=== PATIENT | male | born 1990 | race American Indian/Alaskan Native ===

== ENCOUNTER 2018-06-05 08:53 | Emergency (ER) | payer MEDICAID, SELFPAY ==
--- NOTE | 2018-06-05 09:00 | W.ED.GENAD ---
Discharge Plan Disposition Patient Disposition: HOME Condition: Fair Discharge Details Chief Complaint: Orthopedic Clinical Impression: Contusion of toe Primary Care Provider: Roberto Figueroa ED Provider: Santa Burks Home Meds and New Rx's Prescriptions: Continued citalopram 20 MG tablet 30 mg PO DAILY RF: 0 fluticasone 60 GM ointment 1 g Topical PRN PRNRF: 0 loratadine-pseudoephedrine 1 EACH tablet extended release 24 hr 1 tab PO BID RF: 0 naproxen 500 MG tablet 500 mg PO PRN PRNRF: 0 Discharge Instructions Instructions: Foot Contusion (ED) Additional Instructions: Encourage rest, ice, elevation. Tylenol and/or Ibuprofen as needed for discomfort. If you develop new or worsening symptoms seek care urgently once again. Otherwise, please follow-up with primary care in 2 weeks if pain is not improving. Stand Alone Forms: Work Release Referrals: Roberto Figueroa [Primary Care Provider] - Discharge Data Discharge Date/Time-TO BE ENTERED AT DEPARTURE: 06/05/18 10:44 Medical Decision Making Patient is a 27 year old male presenting today with c/c of left great toe pain. Reports that he was rushing down a flight of stairs when barefoot 2 days ago. Tripped and reports that the great toe folded under his foot. Since then has had moderate pain with ambulation at the base of the toe. Denies other injury at the time of the incident. Ecchymosis to base of the affected digit. Denies numbness or tingling but reports it feel distant. Sensation intact on exam. No pain elsewhere in the foot. Will obtain imaging, he declines analgesics at this time. HAs been using marijuana for discomfort. XR reviewed by radiologist: FINDINGS: Bones/joints: No fracture. No dislocation. There is a bone island in the first proximal phalanx. Soft tissues: No radiopaque foreign body. IMPRESSION: No acute osseous abnormality. Discussed findings with the patient. Advised contusion. Encouraged rest, ice, elevation. Tylenol and/or ibuprofen as needed for discomfort. Advised to seek care urgently once again with any new or worsening symptoms./Advise follow-up with primary care in 2 weeks if pain is not improving. All his questions and concerns were addressed and he is in agreement this plan. HPI General Date/Time Provider Initiated Documentation: 06/05/18 08:59. Limitations to Documentation: no limitations. Information obtained by: patient and RN notes reviewed. History of Present Illness 27 year old M presents to the emergency department with the chief complaint of right great toe pain, described as moderate, with intensity rated at 7. Quality is described as aching, and is localized to the right and lower extremity. Patient reports no radiation. Patient started experiencing this day(s) (2) and it has been constant. Immobilization improves symptom(s), Movement worsens symptoms . Patient notes no other symptoms.; denies fever/chills, headaches, rash and weakness. Patient did receive the following treatments prior to arrival, other (marijuana) Related Data Home Medications Medication Instructions Recorded Confirmed citalopram 30 mg PO DAILY 10/12/17 10/12/17 fluticasone 1 g TOPICAL PRN PRN 10/12/17 10/12/17 loratadine-pseudoephedrine 1 tab PO BID 10/12/17 06/05/18 naproxen 500 mg PO PRN PRN 10/12/17 06/05/18 Allergies Allergy/AdvReac Type Severity Reaction Status Date / Time erythromycin base AdvReac Mild Skin Rash Unverified 06/05/18 09:07 Review of Systems Constitutional Reports as per HPI, Denies chills, Denies fever(s), Denies headache(s) and Denies weakness ENT Denies headache(s) Cardiovascular Reports as per HPI Respiratory Reports as per HPI and Denies cough Musculoskeletal Reports as per HPI and Denies tingling Integumentary/Breasts Reports as per HPI, Denies rash and Denies wounds Neurologic Denies headache(s), Denies tingling and Denies weakness [facility] Social History Smoking/Tobacco Use Status: Current every day Exam Const General: cooperative, healthy appearing, comfortable, no acute distress, well developed and well groomed Nutritional Appearance: average body habitus and well nourished Orientation: alert and awake Resp Effort & Inspection: normal respiratory effort, able to speak in complete sentences and no respiratory distress Cardio Rate: regular rate Rhythm: regular rhythm Skin General skin exam: no rashes or lesions noted Lesions: no lesions Rashes: no rashes Trauma: no lacerations or abrasions Neuro General: alert and awake Cognition: normal cognition Speech: speech normal Gait: antalgic Motor: muscle tone normal throughout Sensory Exam: no sensory deficits noted Extrem Left lower extremity: normal capillary refill, no joint enlargement, lower leg Details: normal to inspection; no tenderness, ankle Details: normal to inspection and normal ROM; no tenderness and no swelling and foot (ecchymosis circumfrencially about the base of the left great toe) Details: normal capillary refill, abnormal to inspection (ecchymosis) Details: no joint swelling and no deformities, tenderness Location: of the great toe; not of the dorsal foot, not of the plantar foot, not of any other digit, not of the lateral foot, not of the medial foot and not of the mid foot and ecchymosis; no unusual warmth, no edema, no lacerations and no crepitus Psych Appearance: grossly normal and well kempt Mental Status: mental status grossly normal Speech and Movement: speech and movement normal
[2018-06-05 09:01] VITALS: BP 150/87; PULSE 98; RESP 16; TEMP 37.2; O2SAT 96
--- NOTE | 2018-06-05 09:10 | DI.RAD_ITS ---
SYMPTOM/DIAGNOSIS: GREAT TOE INJURY LEFT FOOT: No fracture or dislocation is seen. IMPRESSION: Negative left foot.
--- NOTE | 2018-06-05 09:13 | ED.GENADUL_ITS ---
Discharge Plan Disposition Patient Disposition: HOME Condition: Fair Discharge Details Chief Complaint: Orthopedic Clinical Impression: Contusion of toe Primary Care Provider: Roberto Figueroa ED Provider: Santa Burks Home Meds and New Rx's Prescriptions: Continued citalopram 20 MG tablet 30 mg PO DAILY RF: 0 fluticasone 60 GM ointment 1 g Topical PRN PRNRF: 0 loratadine-pseudoephedrine 1 EACH tablet extended release 24 hr 1 tab PO BID RF: 0 naproxen 500 MG tablet 500 mg PO PRN PRNRF: 0 Discharge Instructions Instructions: Foot Contusion (ED) Additional Instructions: Encourage rest, ice, elevation. Tylenol and/or Ibuprofen as needed for di scomfort. If you develop new or worsening symptoms seek care urgently once again. Otherwise, please follow-up with primary care in 2 weeks if pain is not improving. Stand Alone Forms: Work Release Referrals: Roberto Figueroa [Primary Care Provider] - Discharge Data Discharge Date/Time-TO BE ENTERED AT DEPARTURE: 06/05/18 10:44 Medical Decision Making Patient is a 27 year old male presenting today with c/c of left great toe pain. Reports that he was rushing down a flight of stairs when barefoot 2 days ago. Tripped and reports that the great toe folded under his foot. Since then has had moderate pain with ambulation at the base of the toe. Denies other injury at the time of the incident. Ecchymosis to base of the affected digit. Denies numbness or tingling but reports it feel distant. Sensation intact on exam. No pain elsewhere in the foot. Will obtain imaging, he declines analgesics at this time. HAs been using marijuana for discomfort. XR reviewed by radiologist: FINDINGS: Bones/joints: No fracture. No dislocation. There is a bone island in the first proximal phalanx. Soft tissues: No radiopaque foreign body. IMPRESSION: No acute osseous abnormality. Discussed findings with the patient. Advised contusion. Encouraged rest, ice, elevation. Tylenol and/or ibuprofen as needed for discomfort. Advised to seek care urgently once again with any new or worsening symptoms./Advise follow-up with primary care in 2 weeks if pain is not improving. All his questions and concerns were addressed and he is in agreement this plan. HPI General Date/Time Provider Initiated Documentation: 06/05/18 08:59 . Limitations to Documentation: no limitations . Information obtained by: patient and RN notes reviewed . History of Present Illness 27 year old M presents to the emergency department with the chief complaint of right great toe pain, described as moderate, with intensity rated at 7. Quality is described as aching, and is localized to the right and lower extremity. Patient reports no radiation. Patient started experiencing this day(s) (2) and it has been constant. Immobilization improves symptom(s), Movement worsens symptoms . Patient notes no other symptoms.; denies fever/chills, headaches, rash and weakness. Patient did receive the following treatments prior to arrival, other (marijuana) Related Data Home Medications Medication Instructions Recorded Confirmed citalopram 30 mg PO DAILY 10/12/17 10/12/17 fluticasone 1 g TOPICAL PRN PRN 10/12/17 10/12/17 loratadine-pseudoephedrine 1 tab PO BID 10/12/17 06/05/18 naproxen 500 mg PO PRN PRN 10/12/17 06/05/18 Allergies Allergy/AdvReac Type Severity Reaction Status Date / Time erythromycin base AdvReac Mild Skin Rash Unverified 06/05/18 09:07 Review of Systems Constitutional Reports as per HPI, Denies chills, Denies fever(s), Denies headache(s) and Denies weakness ENT Denies headache(s) Cardiovascular Reports as per HPI Respiratory Reports as per HPI and Denies cough Musculoskeletal Reports as per HPI and Denies tingling Integumentary/Breasts Reports as per HPI, Denies rash and Denies wounds Neurologic Denies headache(s), Denies tingling and Denies weakness [facility], [facility] Social History Smoking/Tobacco Use Status: Current every day Exam Const General: cooperative, healthy appearing, comfortable, no acute distress, well developed and well groomed Nutritional Appearance: average body habitus and well nourished Orientation: alert and awake Resp Effort & Inspection: normal respiratory effort, able to speak in complete sentences and no respiratory distress Cardio Rate: regular rate Rhythm: regular rhythm Skin General skin exam: no rashes or lesions noted Lesions: no lesions Rashes: no rashes Trauma: no lacerations or abrasions Neuro General: alert and awake Cognition: normal cognition Speech: speech normal Gait: antalgic Motor: muscle tone normal throughout Sensory Exam: no sensory deficits noted Extrem Left lower extremity: normal capillary refill, no joint enlargement, lower leg Details: normal to inspection; no tenderness, ankle Details: normal to inspection and normal ROM; no tenderness and no swelling and foot (ecchymosis circumfrencially about the base of the left great toe) Details: normal capillary refill, abnormal to inspection (ecchymosis) Details: no joint swelling and no deformities, tenderness Location: of the great toe; not of the dorsal foot, not of the plantar foot, not of any other digit, not of the lateral foot, not of the medial foot and not of the mid foot and ecchymosis; no unusual warmth, no edema, no lacerations and no crepitus Psych Appearance: grossly normal and well kempt Mental Status: mental status grossly normal Speech and Movement: speech and movement normal
--- NOTE | 2018-06-05 10:24 | DI.VRAD_ITS ---
EXAM: XR Left Foot Complete, 3 or more Views EXAM DATE/TIME: 06/05/2018 9:45 AM CLINICAL HISTORY: 27 years old, male; Great toe injury TECHNIQUE: XR Left foot 3 or more views. COMPARISON: No relevant prior studies available. FINDINGS: Bones/joints: No fracture. No dislocation. There is a bone island in the first proximal phalanx. Soft tissues: No radiopaque foreign body. IMPRESSION: No acute osseous abnormality. Dictated and Authenticated by: Garrett Joseph MD. Ordering:SHAMEKA Pratt MD
== END 2018-06-05 10:44 | disposition home or self-care (01) ==
PROVIDERS: Emergency Provider Physician Assistant; PCP Internal Medicine
DX: S90.112A Contusion of left great toe without damage to nail, initial encounter (principal); W18.40XA Slipping, tripping and stumbling without falling, unspecified, initial encounter
CPT/HCPCS: 99283; 73630; 99282

== ENCOUNTER 2019-03-14 11:27 | Outpatient (REF) | payer MEDICAID, SELFPAY ==
[2019-03-14 20:40] LABS: HCT 46.4 % (40.0-50.0); HGB 15.7 g/dL (13.5-17.5); Mean Corp. HGB Concentration 33.8 g/dL (32.0-36.0); Mean Corpuscular Hemoglobin 28.5 pg (27.0-33.0); Mean Corpuscular Volume 84.2 fL (80-95); Platelet Count 327 x1000/uL (130-400); RBC 5.51 m/cumm (4.50-6.00); RBC Distribution Width 13.1 % (11.8-14.1); White Blood Cell Count 7.32 k/cumm (4.4-10.8)
[2019-03-14 20:58] LABS: Anion Gap 8.6 mmol/L (3-11); BUN 11 mg/dL (7-18); CO2 27.4 mmol/L (21.0-32.0); CREATININE 0.98 mg/dL (0.70-1.30); Calcium 9.2 mg/dL (8.5-10.1); Chloride 107 mmol/L (98-107); Glucose 94 mg/dL (70-100); Potassium 4.2 mmol/L (3.5-5.1); Sodium 143 mmol/L (136-145); TSH (W/Ref FT4) 0.68 uIU/mL (0.36-3.74)
[2019-03-14 21:10] LABS: Vitamin D 25 Total 28.2 ng/ml (30-100)
== END 2019-03-14 11:47 ==
LOC: NCHCN 11:27
PROVIDERS: PCP Internal Medicine; Visit Provider Nurse Practitioner Family
DX: F32.9 Major depressive disorder, single episode, unspecified (principal); F41.1 Generalized anxiety disorder; R03.0 Elevated blood-pressure reading, without diagnosis of hypertension; G47.33 Obstructive sleep apnea (adult) (pediatric); G47.9 Sleep disorder, unspecified
CPT/HCPCS: 80048; 82306; 85027; 84443

== ENCOUNTER 2019-06-06 22:47 | Outpatient (REF) | payer MEDICAID, SELFPAY ==
[2019-06-07 03:02] LABS: ALT 40 U/L (16-63); AST 17 U/L (15-37); Albumin 3.8 g/dL (3.4-5.0); Alkaline Phosphatase 116 U/L (46-116); Bilirubin, Direct 0.07 mg/dL (0.00-0.20); Bilirubin, Total 0.3 mg/dL (0.2-1.0)
== END 2019-06-06 23:07 ==
LOC: NCHCN 22:47
PROVIDERS: PCP Internal Medicine; Visit Provider Nurse Practitioner Family
DX: R10.32 Left lower quadrant pain (principal); R03.0 Elevated blood-pressure reading, without diagnosis of hypertension; E66.01 Morbid (severe) obesity due to excess calories
CPT/HCPCS: 80076

== ENCOUNTER 2019-10-19 11:20 | Outpatient (REF) | payer MEDICAID, SELFPAY ==
[2019-10-19 20:54] LABS: ALT 51 U/L (16-63); AST 18 U/L (15-37); Alkaline Phosphatase 106 U/L (46-116); Anion Gap 11.3 mmol/L (3-11); BUN 12 mg/dL (7-18); Bilirubin, Total 0.3 mg/dL (0.2-1.0); CO2 23.7 mmol/L (21.0-32.0); CREATININE 1.16 mg/dL (0.70-1.30); Calcium 8.9 mg/dL (8.5-10.1); Calculated LDL 136 mg/dL (<100); Chloride 111 mmol/L (98-107); Cholesterol 221 mg/dL (<200); Glucose 93 mg/dL (74-106); HDL Cholesterol 28 mg/dL (40-60); Potassium 3.8 mmol/L (3.5-5.1); Sodium 146 mmol/L (136-145); Triglyceride 286 mg/dL (<150)
== END 2019-10-19 11:40 ==
LOC: NCHCN 11:20
PROVIDERS: PCP Internal Medicine; Visit Provider Nurse Practitioner Family
DX: R63.5 Abnormal weight gain (principal); M72.2 Plantar fascial fibromatosis; Z13.220 Encounter for screening for lipoid disorders; Z79.899 Other long term (current) drug therapy
CPT/HCPCS: 80053; 80061

== ENCOUNTER 2020-01-23 08:50 | Outpatient (CLI) | payer MEDICAID, SELFPAY ==
[2020-01-24 12:31] LABS: COVID-19 RT-PCR Result NEGATIVE (Negative)
== END 2020-01-23 09:10 ==
PROVIDERS: PCP Internal Medicine; Visit Provider Nurse Practitioner
DX: Z11.59 Encounter for screening for other viral diseases (principal); Z01.818 Encounter for other preprocedural examination
CPT/HCPCS: U0003

== ENCOUNTER 2020-07-09 15:19 | Outpatient (REF) | payer MEDICAID, SELFPAY ==
[2020-07-09 15:37] LABS: Anion Gap 6.9 mmol/L (3-11); BUN 12 mg/dL (7-18); CO2 25.1 mmol/L (21.0-32.0); Calcium 8.8 mg/dL (8.5-10.1); Chloride 110 mmol/L (98-107); Glucose 85 mg/dL (74-106); Potassium 3.7 mmol/L (3.5-5.1); Sodium 142 mmol/L (136-145)
[2020-07-09 16:27] LABS: Vitamin D 25 Total 26.9 ng/ml (30-100)
== END 2020-07-09 15:20 | disposition home or self-care (01) ==
LOC: NCHCN 15:19
PROVIDERS: PCP Internal Medicine; Visit Provider Nurse Practitioner Family
DX: F32.9 Major depressive disorder, single episode, unspecified (principal); Z79.899 Other long term (current) drug therapy
CPT/HCPCS: 80048; 82306

== ENCOUNTER 2020-07-12 02:45 | Emergency (ER) | payer MEDICAID, SELFPAY ==
[2020-07-12 02:45] VITALS: BP 149/96; PULSE 140; RESP 18; TEMP 37.2; O2SAT 95
--- NOTE | 2020-07-12 02:52 | ED.GENADUL_ITS ---
Discharge Plan Disposition Patient Disposition: HOME Condition: Good Discharge Details Clinical Impression: Psychosis, transient, Marijuana intoxication Primary Care Provider: Roberto Figueroa ED Provider: Roberto Carlson Home Meds and New Rx's Prescriptions: Continued naproxen 500 MG tablet 500 mg PO PRN PRNRF: 0 fluoxetine 40 mg Capsule 40 mg PO DAILY RF: 0 bupropion HCl [Wellbutrin SR] 150 mg Tablet Sustained-Release 12 Hr 150 mg PO BID RF: 0 olanzapine [Zyprexa] 5 mg Tablet 5 mg PO DAILY PRN PRNRF: 0 topiramate 25 mg Tablet 25 mg PO BID RF: 0 hydroxyzine HCl 50 mg Tablet 50 mg PO BID PRN PRNRF: 0 cholecalciferol (vitamin D3) [Vitamin D3] 25 mcg (1,000 unit) Capsule 50 mcg PO DAILY RF: 0 Discharge Instructions Additional Instructions: Suspect this episode was related to marijuana use as it was transient in nature. Would recommend decrease in marijuana use. Follow-up with primary care next week. Return to ED for any concerns or problems especially recurrent episodes. Referrals: Roberto Figueroa [Primary Care Provider] - Medical Decision Making Suspect this is drug-induced psychosis which is now resolving. Was fairly tachycardic but did not want IV and was able to drink fluids without difficulty. Thanks he has had elevated heart rate and blood pressure previously at doctor's office. Continues to have no physical complaints. Urine drug screen positive for marijuana only. Denies any SI or HI. Denies any other drugs, over-the- counter medications. Does take his prescribed medication as directed. Eventually patient's heart rate slowly came down. It is sinus on the monitor. He has had no recurrent episodes of paranoia or agitation. He has normal mental status and neurologic exam. Feel he is safe for discharge home at this point. Should consider decrease use of marijuana. Lab Data Lab results reviewed: Yes I reviewed the patient's lab results. HPI General Mode of arrival: EMS . Date/Time Provider Initiated Documentation: 07/12/20 02:51 . Information obtained by: patient, EMS and RN notes reviewed . HPI Narrative: Patient presents to the ED by ambulance after EMS and police were called to residence for paranoid behavior and agitation. Patient had been smoking marijuana. He became acutely paranoid and agitated and felt he was being possessed by a demon and being controlled by a statue. He was held down by family members. Eventually calmed down once the statue that he was concerned about was thrown out onto the front lawn. For EMS he has been completely calm and cooperative. He reports to me that he has smoked marijuana for a while and did not think that he smoked any more than usual tonight, though EMS reports that family said he used twice as much as usual. He denies any other drug use. He denies any alcohol use. Currently has no physical complaints of. He does have recollection of what occurred. No longer feels possessed or paranoid, denies SI, denies HI. Related Data Home Medications Medication Instructions Recorded Confirmed naproxen 500 mg PO PRN PRN 10/12/17 07/12/20 bupropion HCl [Wellbutrin SR] 150 mg PO BID 07/12/20 07/12/20 cholecalciferol (vitamin D3) 50 mcg PO DAILY 07/12/20 07/12/20 [Vitamin D3] fluoxetine 40 mg PO DAILY 07/12/20 07/12/20 hydroxyzine HCl 50 mg PO BID PRN PRN 07/12/20 07/12/20 olanzapine [Zyprexa] 5 mg PO DAILY PRN PRN 07/12/20 07/12/20 topiramate 25 mg PO BID 07/12/20 07/12/20 Allergies Allergy/AdvReac Type Severity Reaction Status Date / Time erythromycin base AdvReac Mild Skin Rash Unverified 07/12/20 04:59 General MILLER: 4 Review of Systems Narrative: As documented in HPI otherwise negative as below. Const: no fever, chills, weakness Resp: no cough, SOB, pleuritic pain CV: no CP, diaphoresis, edema, syncope GI: no abdominal pain, nausea, vomiting, diarrhea Neuro: no headache, numbness, focal weakness, confusion PFSH Medical History Asthma Depression Surgical History No significant past surgical history Social History Smoking/Tobacco Use Status: Former Tobacco Use Smoking risk assessment performed?: Yes Alcohol Intake: never Drug use: Daily Substance use type: marijuana Do you feel safe at home: Yes Do you feel safe in your relationship?: Yes Exam Narrative Exam Narrative: Const: Obese male in NAD. HEENT: NC/AT. Normal facial exam. Eyes: Dilated pupils but reactive. EOMI. Neck: Supple. Trachea midline. Lungs: Normal respiratory effort. Lungs are clear. Cor: Tachy. RRR without murmur/gallop. Good radial pulses. Neuro: A+O x 3. Normal speech, mentation, gait. Cranial nerves II - XII grossly intact. No gross motor or sensory deficit. Ext: No C/C/E. Skin: Warm and dry without rash. Psych: Calm and cooperative here. No signs of paranoia or delusion. No SI or HI. Normal thought content.
[2020-07-12 03:24] LABS: *AMPHETAMINES SCREEN URINE Negative (Negative); *BARBITURATES SCREEN URINE Negative (Negative); *BENZODIAZEPINES SCREEN URINE Negative (Negative); Cannabinoids THC POSITIVE (Negative); Cocaine Screen,Urine Negative (Negative); METHADONE URINE SCREEN Negative (Negative); OPIATES URINE SCREEN Negative (Negative)
[2020-07-12 03:26] LABS: Tricyclic Antidepressants Negative (Negative)
[2020-07-12 04:25] VITALS: BP 129/72; PULSE 120; RESP 18; O2SAT 96
[2020-07-12 05:05] VITALS: BP 136/80; PULSE 116; RESP 18; O2SAT 96
[2020-07-12 05:50] VITALS: BP 150/85; PULSE 109; RESP 18; O2SAT 96
== END 2020-07-12 06:25 | disposition home or self-care (01) ==
LOC: ER 06:09
PROVIDERS: Emergency Provider Emergency Medicine; PCP Internal Medicine
DX: F23 Brief psychotic disorder (principal); F12.121 Cannabis abuse with intoxication delirium; F22 Delusional disorders
CPT/HCPCS: 80307; 99284; 99283

== ENCOUNTER 2021-01-18 14:26 | Emergency (ER) | payer MEDICAID, SELFPAY ==
[2021-01-18 14:27] VITALS: RESP 14
[2021-01-18 14:33] VITALS: BP 127/86; PULSE 111; TEMP 37.5; O2SAT 96
--- NOTE | 2021-01-18 14:38 | W.ED.GENAD ---
Discharge Plan Disposition Patient Disposition: HOME Condition: Improving Discharge Details Clinical Impression: Anxiety, Marijuana intoxication Primary Care Provider: Roberto Figueroa ED Provider: Chris Pemberton Home Meds and New Rx's Prescriptions: Continued naproxen 500 MG tablet 500 mg PO PRN PRNRF: 0 fluoxetine 40 mg Capsule 40 mg PO DAILY RF: 0 bupropion HCl [Wellbutrin SR] 150 mg Tablet Sustained-Release 12 Hr 150 mg PO BID RF: 0 olanzapine [Zyprexa] 5 mg Tablet 5 mg PO DAILY PRN PRNRF: 0 topiramate 25 mg Tablet 25 mg PO BID RF: 0 hydroxyzine HCl 50 mg Tablet 50 mg PO BID PRN PRNRF: 0 cholecalciferol (vitamin D3) [Vitamin D3] 25 mcg (1,000 unit) Capsule 50 mcg PO DAILY RF: 0 citalopram 20 mg tablet 20 mg PO DAILY RF: 0 paroxetine HCl 20 mg tablet 20 mg PO DAILY RF: 0 omeprazole 20 mg capsule,delayed release(DR/EC) 20 mg PO DAILY RF: 0 melatonin 5 mg capsule 5 mg PO HS RF: 0 Discharge Instructions Instructions: Anxiety (ED) Additional Instructions: Please stop your use of marijuana. Continue your prescribed medications. Home to rest today. Small, frequent sips of fluid so that you maintain good hydration today. Return to the emergency room for any acute concerns. Medical Decision Making This is a 30-year-old male who presents via EMS. He reports smoking some marijuana at home this morning, becoming anxious and having a panic attack which she describes as emotional disturbance. He denies having thoughts of harming himself or others. He states after transport via EMS he is now feeling calm, no longer complaining of emotional distress, states he feels improved and requests discharge to home. I did perform a medical screening examination on the patient which is unremarkable. His heart rate at triage was elevated above 100, was 90 in the room during my examination. His thoughts are congruent and I do feel stable for discharge home. I admonished him to stop smoking marijuana. HPI General Mode of arrival: EMS. Date/Time Provider Initiated Documentation: 01/18/21 14:29. Limitations to Documentation: no limitations. Information obtained by: patient and EMS. History of Present Illness 30 year old M presents to the emergency department with the chief complaint of Panic attack after smoking marijuana, now improved , described as moderate, Quality is described as dull, and is localized to the right and lower extremity. Patient reports no radiation. Patient started experiencing this minute(s) and it has been now resolved. No relieving factors improve symptom(s), Other factors that worsen symptoms (marijuana) . Patient notes denies syncope and weakness. Patient did receive the following treatments prior to arrival, none Related Data Home Medications Medication Instructions Recorded Confirmed naproxen 500 mg PO PRN PRN 10/12/17 01/18/21 bupropion HCl [Wellbutrin SR] 150 mg PO BID 07/12/20 01/18/21 cholecalciferol (vitamin D3) 50 mcg PO DAILY 07/12/20 01/18/21 [Vitamin D3] fluoxetine 40 mg PO DAILY 07/12/20 01/18/21 hydroxyzine HCl 50 mg PO BID PRN PRN 07/12/20 01/18/21 olanzapine [Zyprexa] 5 mg PO DAILY PRN PRN 07/12/20 01/18/21 topiramate 25 mg PO BID 07/12/20 01/18/21 citalopram 20 mg PO DAILY 01/18/21 01/18/21 melatonin 5 mg PO HS 01/18/21 01/18/21 omeprazole 20 mg PO DAILY 01/18/21 01/18/21 paroxetine HCl 20 mg PO DAILY 01/18/21 01/18/21 Allergies Allergy/AdvReac Type Severity Reaction Status Date / Time erythromycin base AdvReac Mild Skin Rash Unverified 01/18/21 14:30 General Stated Complaint: PsychEval MILLER: 2 Review of Systems Narrative: Denies thoughts of harming himself or others. Now feels improved. No anxieties. 6 systems reviewed and otherwise negative [facility] Medical History Asthma Depression Surgical History No significant past surgical history Social History Smoking/Tobacco Use Status: Former Tobacco Use Smoking risk assessment performed?: Yes Alcohol Intake: never Drug use: Daily Substance use type: marijuana Do you feel safe at home: Yes Do you feel safe in your relationship?: Yes Exam Narrative Exam Narrative: GEN: awake, alert, oriented 3. Pleasant, well groomed, interactive. HEAD: Normocephalic, atraumatic ENT: Mucous membranes moist, oropharynx unremarkable, External ear exam unremarkable EYES: PERRL, EOMI NECK: Full ROM, no JOCELINE, no menigismus CHEST/RESP: Nontender, clear to auscultation bilateral, no wheeze/rhonchi/rales CARDIOVASCULAR: RRR, no murmur, rub isaac. 2+ Rad pulse bilateral ABDOMEN: Soft, nontender, no mass. +Bowel sounds EXT: Full ROM, no edema, no rash Neuro: Grossly normal neurologic exam, conversant, interactive. Psych: Speech fluent, thoughts congruent, affect flat Course Vital Signs Vital signs: Vital Signs Respiratory Rate 14 01/18/21 14:27 Temperature 37.5 C 01/18/21 14:33 Temperature Source Oral 01/18/21 14:33 Pulse 111 H 01/18/21 14:33 Respiratory Rate 14 01/18/21 14:27 Respiratory Effort Non-Labored 01/18/21 14:35 Blood Pressure 127/86 01/18/21 14:33 Pulse Oximetry 96 01/18/21 14:33 Oxygen Delivery Method Room Air 01/18/21 14:33 Oxygen Flow Rate 0 01/18/21 14:33 Pain Level 0 01/18/21 14:27
== END 2021-01-18 15:09 | disposition home or self-care (01) ==
LOC: ER 17:22
PROVIDERS: Emergency Provider Emergency Medicine; PCP Internal Medicine
DX: F41.9 Anxiety disorder, unspecified (principal); F12.929 Cannabis use, unspecified with intoxication, unspecified
CPT/HCPCS: 99283; 99282

== ENCOUNTER 2021-07-22 10:10 | Outpatient (CLI) | payer MEDICAID, SELFPAY ==
--- NOTE | 2021-07-22 09:15 | DI.RAD_ITS ---
Exam(s) XR WRIST RT COMPLETE EXAM: XR WRIST RT COMPLETE CLINICAL HISTORY: pain. TECHNIQUE: 2D digital imaging was performed. Three views. COMPARISON: No exams were available for comparison FINDINGS: BONES: No acute fracture is present. No bony destructive lesion is seen. JOINTS: The carpal bones are normally aligned. SOFT TISSUE: Normal. IMPRESSION: Unremarkable radiographs of the right wrist. DATA REPOSITORY: RADIATION DOSE DELIVERED:
== END 2021-07-22 10:11 | disposition home or self-care (01) ==
LOC: DIORS 10:10
PROVIDERS: PCP Nurse Practitioner Family; Visit Provider Physician Assistant Surgical
DX: M25.531 Pain in right wrist; M67.431 Ganglion, right wrist
CPT/HCPCS: 73110

== ENCOUNTER 2021-07-30 02:31 | Outpatient (CLI) | payer MEDICAID, SELFPAY ==
[2021-07-30 12:02] LABS: Source Nasal/Nares
[2021-07-30 14:10] LABS: COVID-19 PCR Negative (Negative)
== END 2021-07-30 02:32 | disposition home or self-care (01) ==
LOC: LBO 02:31
PROVIDERS: PCP Nurse Practitioner Family; Visit Provider Student in an Organized Health Care Education/Training Program
DX: Z20.822 Contact with and (suspected) exposure to COVID-19 (principal); Z01.818 Encounter for other preprocedural examination
CPT/HCPCS: 87635

== ENCOUNTER 2021-07-31 06:58 | Day surgery (SDC) | payer MEDICAID, SELFPAY ==
--- NOTE | 2021-07-31 06:51 | W.ANESPRE ---
General Info Height: 5 ft 10 in Weight: 117.48 kg Body Mass Index (BMI): 37.1 Surgical Procedure: Operation Date: 07/31/21 07:40 Proposed Procedure Side Surgeon p Wrist Ganglion Cyst Excision Right Julian Loo MD Meds Allergies and Home Medications Allergies Allergy/AdvReac Type Severity Reaction Status Date / Time erythromycin base AdvReac Mild Skin Rash Unverified 07/29/21 13:48 Home Medication Medication Instructions Recorded naproxen 500 mg tablet 500 mg PO PRN PRN 10/12/17 bupropion HCl 150 mg tablet,12 hr 150 mg PO BID 07/12/20 sustained-release (Wellbutrin SR) cholecalciferol (vitamin D3) 25 50 mcg PO DAILY 07/12/20 mcg (1,000 unit) capsule (Vitamin D3) hydroxyzine HCl 50 mg tablet 50 mg PO BID PRN PRN 07/12/20 olanzapine 5 mg tablet (Zyprexa) 5 mg PO DAILY PRN PRN 07/12/20 citalopram 20 mg tablet 20 mg PO DAILY 01/18/21 omeprazole 20 mg capsule,delayed 20 mg PO DAILY 01/18/21 release fluoxetine 40 mg capsule 60 mg PO DAILY cap 06/20/21 topiramate 25 mg tablet 75 mg PO BID tab 06/20/21 Current Visit Medications: Current Medications Generic Name Dose Route Start Last Admin Trade Name Freq PRN Reason Stop Dose Admin Ringer's Solution 1,000 mls @ 80 mls/hr 07/31/21 06:00 IV 08/29/21 23:59 INFUSION NICOLÁS Cefazolin Sodium 3,000 mg/ 100 mls @ 200 mls/hr 07/31/21 06:00 Sodium Chloride IVPB 07/31/21 23:59 PREOP NICOLÁS IV Miscellaneous Supplies 1 each 07/31/21 06:00 Iv Access IV 08/29/21 23:59 DIRECTED NICOLÁS Sodium Chloride 0 ml 07/31/21 06:00 Normal Saline Flush 10 Ml Syr IV 08/29/21 23:59 PRN PRN Sodium Chloride 0 ml 07/31/21 06:00 Normal Saline 10 Ml Vial IJ 08/29/21 23:59 DIRECTED PRN Sterile Water 0 ml 07/31/21 06:00 Water,Injection,Sterile 10 Ml Vial IJ 08/29/21 23:59 DIRECTED PRN PFSH Active Problems Active Problems: Problem Status Onset Code Ganglion cyst of dorsum of right wrist M67.431 Morbid obesity E66.01 ADHD F90.9 PTSD (post-traumatic stress disorder) F43.10 GERD (gastroesophageal reflux disease) K21.9 FROILAN (obstructive sleep apnea) G47.33 Periodic limb movement disorder G47.61 Psychosis, transient F09 Marijuana intoxication F12.929 Anxiety F41.9 Depression F32.9 Asthma J45.909 Medical History Medical History Pes planus Plantar fasciitis of left foot Surgical History Surgical History No significant past surgical history Tobacco Smoking/Tobacco Use Status: Former Tobacco Use Alcohol Alcohol Intake: current Alcohol intake frequency: holidays/special occasions only Substance Use Substance use: Daily Substance use type: marijuana Vital Signs and Lab Results Lab Results Blood Type / Crossmatch: No Data to Display Complete Blood Count: No Data to Display Complete Metabolic Panel: No Data to Display Liver Function Panel: No Data to Display Coagulation Panel: No Data to Display Cardiac Panel: No Data to Display Arterial Blood Gas: No Data to Display Venous Blood Gas: No Data to Display Pancreas Panel: No Data to Display Thyroid Panel: No Data to Display Infectious Disease: Coronavirus (COVID-19)(PCR) Negative (Negative) 07/30/21 09:28 07/30/21 Coronavirus 2019 Source Nasal/Nares 07/30/21 09:28 07/30/21 Blood Cultures: No Data to Display Toxicology Panel: No Data to Display Anesthesia Assessment and Plan Anesthesia History Personal History: No History of Anesthesia Complications Family History: No Family History of Anesthesia Complications Implantable Cardiac Device Does patient have a Pacemaker or an ICD?: No
[2021-07-31 07:03] VITALS: BP 148/93; PULSE 78; RESP 16; TEMP 36.5; O2SAT 100
--- NOTE | 2021-07-31 07:04 | W.ANESPRE ---
General Info Date of Service Date Performed: 07/31/21 Height: 5 ft 10 in Weight: 117.48 kg Body Mass Index (BMI): 37.1 Surgical Procedure: Operation Date: 07/31/21 07:40 Proposed Procedure Side Surgeon p Wrist Ganglion Cyst Excision Right Julian Loo MD Meds Allergies and Home Medications Allergies Allergy/AdvReac Type Severity Reaction Status Date / Time erythromycin base AdvReac Mild Skin Rash Unverified 07/31/21 07:08 Home Medication Medication Instructions Recorded naproxen 500 mg tablet 500 mg PO PRN PRN 10/12/17 bupropion HCl 150 mg tablet,12 hr 150 mg PO BID 07/12/20 sustained-release (Wellbutrin SR) cholecalciferol (vitamin D3) 25 50 mcg PO DAILY 07/12/20 mcg (1,000 unit) capsule (Vitamin D3) hydroxyzine HCl 50 mg tablet 50 mg PO BID PRN PRN 07/12/20 olanzapine 5 mg tablet (Zyprexa) 5 mg PO DAILY PRN PRN 07/12/20 omeprazole 20 mg capsule,delayed 20 mg PO DAILY 01/18/21 release fluoxetine 40 mg capsule 60 mg PO DAILY cap 06/20/21 topiramate 25 mg tablet 75 mg PO BID tab 06/20/21 Current Visit Medications: Current Medications Generic Name Dose Route Start Last Admin Trade Name Freq PRN Reason Stop Dose Admin Ringer's Solution 1,000 mls @ 80 mls/hr 07/31/21 06:00 IV 08/29/21 23:59 INFUSION NICOLÁS Cefazolin Sodium 3,000 mg/ 100 mls @ 200 mls/hr 07/31/21 06:00 Sodium Chloride IVPB 07/31/21 23:59 PREOP NICOLÁS IV Miscellaneous Supplies 1 each 07/31/21 06:00 Iv Access IV 08/29/21 23:59 DIRECTED NICOLÁS Sodium Chloride 0 ml 07/31/21 06:00 Normal Saline Flush 10 Ml Syr IV 08/29/21 23:59 PRN PRN Sodium Chloride 0 ml 07/31/21 06:00 Normal Saline 10 Ml Vial IJ 08/29/21 23:59 DIRECTED PRN Sterile Water 0 ml 07/31/21 06:00 Water,Injection,Sterile 10 Ml Vial IJ 08/29/21 23:59 DIRECTED PRN PFSH Active Problems Active Problems: Problem Status Onset Code Ganglion cyst of dorsum of right wrist M67.431 Morbid obesity E66.01 ADHD F90.9 PTSD (post-traumatic stress disorder) F43.10 GERD (gastroesophageal reflux disease) K21.9 FROILAN (obstructive sleep apnea) G47.33 Periodic limb movement disorder G47.61 Psychosis, transient F09 Marijuana intoxication F12.929 Anxiety F41.9 Depression F32.9 Asthma J45.909 Medical History Medical History Pes planus Plantar fasciitis of left foot Surgical History Surgical History No significant past surgical history Tobacco Smoking/Tobacco Use Status: Former Tobacco Use Alcohol Alcohol Intake: current Alcohol intake frequency: holidays/special occasions only Substance Use Substance use: Daily Substance use type: marijuana Vital Signs and Lab Results Lab Results Blood Type / Crossmatch: No Data to Display Complete Blood Count: No Data to Display Complete Metabolic Panel: No Data to Display Liver Function Panel: No Data to Display Coagulation Panel: No Data to Display Cardiac Panel: No Data to Display Arterial Blood Gas: No Data to Display Venous Blood Gas: No Data to Display Pancreas Panel: No Data to Display Thyroid Panel: No Data to Display Infectious Disease: Coronavirus (COVID-19)(PCR) Negative (Negative) 07/30/21 09:28 07/30/21 Coronavirus 2019 Source Nasal/Nares 07/30/21 09:28 07/30/21 Blood Cultures: No Data to Display Toxicology Panel: No Data to Display Anesthesia Assessment and Plan Anesthesia History Personal History: No History of General Anesthesia Family History: No Family History of Anesthesia Complications Exercise Tolerance Exercise Tolerance: Metabolic Equivalents>4 Pertinent Negatives Pertinent Negatives: No Symptoms of GERD, No Major Cardiovascular Symptoms or Complaints, No Major Pulmonary Symptoms or Complaints (Marijuana every day) and No History of CVA/TIA Cardiac & Pulmonary Exam Cardiac Exam: Normal S1/S2 Heart Sounds Pulmonary Exam: Clear Bilateral Breath Sounds Implantable Cardiac Device Does patient have a Pacemaker or an ICD?: No Airway Exam Known Difficult Airway: No Mallampati Class: 1 Mouth Opening: Normal (> 3cm) Thyromental Distance: Greater than 3 cm Facial Hair: Full Saleem Neck Range of Motion: Full ROM Neck Circumference: Thick Teeth Condition: Normal Dentition ASA Classification ASA Score: ASA 3 Emergency Case?: No NPO Status NPO Status: NPO Clears >2 hours, Solids >8 hours Anesthesia Plan Resuscitation Status: Full Code Anesthesia Technique: General Anesthesia Airway Planned: Natural Airway Monitors Used: Standard Monitors
[2021-07-31] MEDS: Lactated Ringers 1,000 ML 80 ML IV (07:13)
[2021-07-31 07:17] VITALS: BMI 37.1
[2021-07-31] MEDS: ceFAZolin 3,000 MG in Normal Saline 100 ML 200 MG IVPB (07:27)
--- NOTE | 2021-07-31 07:30 | PDOC.DSDIS_ITS ---
Discharge Plan Disposition Patient Disposition: HOME Condition: Good Discharge Details Reason For Visit: (R) Wrist Cyst Attending Provider: Julian Loo Primary Care Provider: Aarti Skaggs Home Meds and New Rx's Prescriptions: New acetaminophen 500 mg tablet 1,000 mg PO TID Qty: 90 0RF ibuprofen 600 mg tablet 600 mg PO TID PRN (Reason: pain) Qty: 90 0RF hydrocodone-acetaminophen 5-325 mg tablet 1 tab PO Q6H PRN (Reason: pain) Qty: 6 0RF Continued fluoxetine 40 mg capsule 60 mg PO DAILY 0RF topiramate 25 mg tablet 75 mg PO BID 0RF bupropion HCl [Wellbutrin SR] 150 mg Tablet Sustained-Release 12 Hr 150 mg PO BID 0RF olanzapine [Zyprexa] 5 mg Tablet 5 mg PO DAILY PRN PRN0RF hydroxyzine HCl 50 mg Tablet 50 mg PO BID PRN PRN0RF Rx Instructions: 1/2 to 1 tab BID PRN cholecalciferol (vitamin D3) [Vitamin D3] 25 mcg (1,000 unit) Capsule 50 mcg PO DAILY 0RF omeprazole 20 mg capsule,delayed release(DR/EC) 20 mg PO DAILY 0RF Label Comments: TAKE 1 CAPSULE BY MOUTH DAILY Discontinued naproxen 500 MG tablet 500 mg PO PRN PRN0RF Discharge Instructions Additional Instructions: Cyst Excision Discharge Instructions Activity: You should keep the hand/wrist elevated as much as possible for the first few days. You may use the other fingers as tolerated but avoid trying to do too much too soon. You may perform light activities with the splint in place. Dressing/Cast: Your splint should stay in place at all times. Do NOT get it wet. You may loosen the SCOTTY wrap if you feel it is too tight and then rewrap more loosely. Medications: - You should take Tylenol and Ibuprofen for baseline pain control. - You have been prescribed a stronger pain medication, Hydrocodone, for breakthrough pain. - You may apply ice over the wrist, just double bag so it doesn't get wet. Follow-up: 10-14 days Referrals: Julian Loo MD [ [facility] STAFF PHYSICIAN] - Activity:: Elevate Remove Dressings/Wound Care:: Do Not Remove Shower/Bathe:: Cover Diet:: As Tolerated Discharge Orders Discharge Orders: Discharge Order (Routine); Ordered 07/31/21 Ordered By: Josh Otto DS: Diagnosis Discharge Diagnosis (1) Ganglion cyst of dorsum of right wrist: Status: Acute
[2021-07-31] MEDS: Sodium Bicarbonate 50 MEQ/50 ML VIAL (07:36)
[2021-07-31 08:00] VITALS: BP 118/74; PULSE 78; RESP 16; TEMP 36.3; O2SAT 97
--- NOTE | 2021-07-31 08:23 | W.ANESPOSTOP ---
Postoperative Evaluation Date, Time and Location Date Performed: 07/31/21 Time Performed: : Patient Location: Day Surgery Unit Vital Signs Most Recent Imported Vital Signs: Most Recent Vital Signs Temp Pulse Resp BP Pulse Ox 36.3 C L 78 16 118/74 97 07/31/21 08:00 07/31/21 08:00 07/31/21 08:00 07/31/21 08:00 07/31/21 08:00 Pain Score Most Recent Pain Score: Most Recent Pain Score Pain Level 0 07/31/21 08:00 Assessment Mental Status: Awake (Alert & Oriented to Patient Baseline) Airway and Respiratory Function: Patent airway with normal (patient baseline) respiratory exam Cardiovascular Function: Hemodynamically Stable Hydration Status: Adequately Hydrated Nausea & Vomiting: No Nausea or Vomiting Pain: Pt. Denies Any Pain Peripheral Nerve Block: Patient did not receive a nerve block
[2021-07-31 08:35] VITALS: BP 131/78; PULSE 72; RESP 16; TEMP 36.5; O2SAT 99
--- NOTE | 2021-07-31 19:36 | ROE_ITS ---
Date of service: 07/31/21 Time of Service: 07:45 Operative Note Operative Note DATE OF PROCEDURE: 07/31/21 PRE-OP DIAGNOSIS: Right Dorsal Wrist Ganglion Cyst POST-OP DIAGNOSIS: same PROCEDURE: Excision of dorsal wrist ganglion cyst - right wrist SURGEON: Julian Loo ANESTHESIA TYPE: General:No Airway Refer to Anesthesia Record ESTIMATED BLOOD LOSS: 0 PATHOLOGY: none sent COMPLICATIONS: None Patient was transported to: PACU Patient's condition: stable Indications: Oleg is a 30 year old male who I have seen for a dorsal wrist ganglion cyst. It has continued to be bothersome despite some conservative options. Its size and interference with activities continues to cause problems. Therefore, I offered excision of the wrist cyst. I discussed the risks to include bleeding, infection, pain, stiffness, damage to nerve and vessels, recurrence. Despite these risks, he elects to proceed. Findings: A typical dorsal wrist ganglion cyst was encountered and traced back to the dorsal wrist capsul where it was excised. Procedure Description: Oleg was greeted in the preoperative holding area. Identity was confirmed and the correct site was identified and marked. Consent was reviewed the patient and signed. History and physical was updated. The patient to take not to the operating room placed in supine position. All bony prominences were well- padded. A nonsterile tourniquet was placed high up onto the right arm. The arms and prepped with ChloraPrep and draped in a standard fashion. The surgical site was marked on the skin and injected with 2% lidocaine with epinephrine buffered with sodium bicarbonate. The skin was incised sharply. Deeper dissection was carried out with tenotomy scissors and the cyst was identified and protected with dissection carried around. Once was fully identified it was deflated and the cyst stalk was followed down to the dorsal carpus. The cyst structure was resected and its origin from the carpus was opened with tenotomy scissors and rongeur. The wound was then thoroughly irrigated. There is no major bleeding. The wound was dry. The deep layer was reapproximated with a 3-0 Vicryl. The skin was closed with a running 4-0 Monocryl followed by skin glue, gauze, Kerlix, and Earl wrap. At the end the case all counts were correct. The patient was awakened from anesthesia and taken to the PACU in stable condition. There were no noted complications.
== END 2021-07-31 08:58 | disposition home or self-care (01) ==
PROVIDERS: PCP Nurse Practitioner Family; Visit Provider Student in an Organized Health Care Education/Training Program
PROC: (CPT 25111; principal; 2021-07-31 07:30)
DX: M67.431 Ganglion, right wrist (principal); G47.33 Obstructive sleep apnea (adult) (pediatric); J45.909 Unspecified asthma, uncomplicated; F41.9 Anxiety disorder, unspecified; E66.01 Morbid (severe) obesity due to excess calories
CPT/HCPCS: 25111; J0690; J1885; J2001; J2250; J2405; J3010

== ENCOUNTER 2021-11-25 18:10 | Outpatient (REF) | payer MEDICAID, SELFPAY ==
[2021-11-26 15:28] LABS: Chlamydia Result Negative (Negative); GC Result Negative (Negative)
== END 2021-11-25 18:11 | disposition home or self-care (01) ==
LOC: NCHCN 18:10
PROVIDERS: PCP Nurse Practitioner Family; Visit Provider Nurse Practitioner Family
DX: G44.82 Headache associated with sexual activity (principal); R39.9 Unspecified symptoms and signs involving the genitourinary system
CPT/HCPCS: 87491; 87591

== ENCOUNTER 2022-01-13 16:51 | Emergency (ER) | payer MEDICAID, SELFPAY ==
[2022-01-13 16:31] VITALS: BP 156/105; PULSE 103; TEMP 36.9; O2SAT 98
[2022-01-13 17:31] LABS: Bilirubin Negative (Negative); Blood Negative (Negative); Clarity Sl Cloudy (Clear); Glucose Negative (Negative); Ketones Negative (Negative); Leukocyte Esterase Negative (Negative); Nitrite Negative (Negative); Specific Gravity 1.015 (1.005-1.025); pH 8.5 (5-8)
[2022-01-13 17:39] LABS: Bacteria Negative HPF (Negative); C & S Indicated? No; Casts Negative LPF (Negative); Crystals Many Amorphous HPF (Negative); Epithelial Cells Rare HPF (Negative); Mucus Moderate (Negative); RBC Negative HPF (0-2); WBC 0-2 HPF (0-5)
[2022-01-13 17:42] LABS: Abs Immature Grans 0.04 10^3/uL (0.0-0.06); Absolute Basophil Count 0.08 10^3/uL (0.0-0.2); Absolute Eosinophil Count 0.14 10^3/uL (0.0-0.7); Absolute Monocyte Count 0.94 10^3/uL (0.1-0.8); Basophils % 0.7; Eosinophils % 1.2; HCT 43.4 % (40.0-50.0); HGB 14.1 g/dL (13.5-17.5); Immature Grans % 0.4; Lymphocytes % 11.5; MCH 28.9 pg (27.0-33.0); MCHC 32.5 % (32.0-36.0); MCV 89 fL (80-95); MPV 9.6 fL (8.0-11.0); Monocytes % 8.3; Neutrophils % 77.9; Platelet Count 353 10^3/uL (130-400); RBC 4.88 10^6/uL (4.36-5.78); RDW 14.2 % (11.8-14.1); RDW-SD 46.4 fL; WBC 11.28 10^3/uL (4.4-10.8)
[2022-01-13 17:44] LABS: *AMPHETAMINES SCREEN URINE Negative (Negative); *BARBITURATES SCREEN URINE Negative (Negative); *BENZODIAZEPINES SCREEN URINE Negative (Negative); Cannabinoids THC Positive (Negative); Cocaine Screen,Urine Negative (Negative); METHADONE URINE SCREEN Negative (Negative); OPIATES URINE SCREEN Negative (Negative)
[2022-01-13 17:47] LABS: Tricyclic Antidepressants Negative (Negative)
[2022-01-13 17:47] LABS: Absolute Neutrophil Count 8.79 10^3/uL (1.2-6.7)
[2022-01-13 18:05] LABS: ALT 40 U/L (16-63); AST 20 U/L (15-37); Albumin 4.7 g/dL (3.4-5.0); Alkaline Phosphatase 109 U/L (46-116); Anion Gap 9.4 mmol/L (3-11); BUN 10 mg/dL (7-18); Bilirubin, Total 0.6 mg/dL (0.2-1.0); CO2 24.6 mmol/L (21.0-32.0); CREATININE 1.1 mg/dL (0.70-1.30); Chloride 108 mmol/L (98-107); Estimated GFR 92.61 (mL/min/1.73m2); Glucose 108 mg/dL (74-106); Potassium 3.6 mmol/L (3.5-5.1); Sodium 142 mmol/L (136-145); TSH (W/Ref FT4) 1.02 uIU/mL (0.36-3.74); Total Protein 7.3 g/dL (6.4-8.2)
[2022-01-13 18:09] LABS: Salicylate < 2.8 mg/dL (<2.8)
[2022-01-13 18:10] LABS: Acetaminophen < 2 ug/mL (10-30)
[2022-01-13 18:16] LABS: ETHANOL BLOOD < 3.0 mg/dL (<10)
[2022-01-13] MEDS: LORazepam 1 MG TAB PO (19:32)
[2022-01-13] MEDS: hydrOXYzine HCL 50 MG TAB PO (19:32)
[2022-01-13] MEDS: OLANZapine 5 MG TAB PO (21:19)
[2022-01-13] MEDS: buPROPion-CR 150 MG TABCR PO (21:19)
[2022-01-13] MEDS: Topiramate 50 MG TAB 75 MG PO (21:19)
--- NOTE | 2022-01-13 21:22 | ED.GENADUL_ITS ---
Discharge Plan Disposition Patient Disposition: HOME Condition: Stable Discharge Details Clinical Impression: Depression Primary Care Provider: Aarti Skaggs ED Provider: Nichol Castle Home Meds and New Rx's Prescriptions: Continued fluoxetine 40 mg capsule 60 mg PO DAILY topiramate 25 mg tablet 75 mg PO BID naproxen 500 mg tablet 500 mg PO DAILY Label Comments: TAKE 1 TABLET BY MOUTH TWICE DAILY bupropion HCl [Wellbutrin SR] 150 mg Tablet Sustained-Release 12 Hr 150 mg PO BID olanzapine [Zyprexa] 5 mg Tablet 5 mg PO DAILY PRN PRN hydroxyzine HCl 50 mg Tablet 50 mg PO BID PRN PRN Rx Instructions: 1/2 to 1 tab BID PRN cholecalciferol (vitamin D3) [Vitamin D3] 25 mcg (1,000 unit) Capsule 50 mcg PO DAILY omeprazole 20 mg capsule,delayed release(DR/EC) 20 mg PO DAILY Label Comments: TAKE 1 CAPSULE BY MOUTH DAILY acetaminophen 500 mg tablet 1,000 mg PO TID Qty: 90 0RF ibuprofen 600 mg tablet 600 mg PO TID PRN (Reason: pain) Qty: 90 0RF Discharge Instructions Instructions: Depression (ED) Additional Instructions: Follow-up with your scheduled appointment with [facility] services tomorrow at 10 AM. Continue your regular medications as directed. Follow-up with your primary care doctor in 1 week. Return to the emergency department with any worsening or new concerning symptoms . Discharge Data Discharge Date/Time-TO BE ENTERED AT DEPARTURE: 01/14/22 18:56 Discharge Physician: Nichol Castle Medical Decision Making <Gurvinder Martinez NP - Last Filed: 01/14/22 08:50> Patient presenting to the emergency department for chief complaint of irritabi lity, hostility, and hearing voices. Patient reports that he has not been taking his medication as prescribed and has been using it intermittently. Over the last 24 to 48 hours he has been smoking a new type of hazed marijuana which is causing a worsening of symptoms. Today at home where he lives with his sister there is an emotional outburst and threats made of harming himself. Mother was able to come up and calm patient down and brought him to the emergency department. She states that she is unaware that patient has been having worsening symptoms over the last week. Patient also endorses main contributing factor is the remembrance of his father who approximately 10 years ago. Physical exam is unremarkable for any acute findings and no obvious self-harm. We will perform labs to rule out any metabolic cause. Reviewed labs and patient does have a slight leukocytosis which I feel is more due to stress than acute infection, CMP is nondiagnostic, TSH is normal, urinaly sis is nondiagnostic, patient is negative on his UDS for everything except for THC which he already admitted to and no alcohol was seen. Acetaminophen and salicylates are also negative. Do feel that patient is medically clear for mental health evaluation. After mental health evaluation plan of care for patient to rest in the emergency department overnight with reassessment in the morning. Patient did admit to mental health screener that this evening he did have a gun that was unloaded but that he felt safe for having the gun. Given patient's volatility potentially secondary to marijuana usage and past history of mental health provider did inform me that she has a low threshold LILA patient but at this time he is agreeable to remaining in the emergency department overnight with reassessment to consider voluntary admission versus outpatient services tomorrow depending on the reassessment. After discussion of this plan with patient and mother who is at bedside patient does endorse some anxiety so we will give patient hydroxyzine and 1 mg p.o. Ativan and reassess. We will also plan on giving patient his normal nightly meds to see if this helps further stabilize his condition. 2119-patient continues to endorse anxiety and is requesting Ativan.-Patient needed p.o. medications versus IM and patient requesting IM medication which I feel is appropriate. We will continue to monitor patient and reassess <Nichol Castle DO - Last Filed: 01/16/22 14:27> Patient presenting to the emergency department for chief complaint of irritab ility, hostility, and hearing voices. Patient reports that he has not been taking his medication as prescribed and has been using it intermittently. Over the last 24 to 48 hours he has been smoking a new type of hazed marijuana which is causing a worsening of symptoms. Today at home where he lives with his sister there is an emotional outburst and threats made of harming himself. Mother was able to come up and calm patient down and brought him to the emergency department. She states that she is unaware that patient has been having worsening symptoms over the last week. Patient also endorses main contributing factor is the remembrance of his father who approximately 10 years ago. Physical exam is unremarkable for any acute findings and no obvious self-harm. We will perform labs to rule out any metabolic cause. Reviewed labs and patient does have a slight leukocytosis which I feel is more due to stress than acute infection, CMP is nondiagnostic, TSH is normal, urinal ysis is nondiagnostic, patient is negative on his UDS for everything except for THC which he already admitted to and no alcohol was seen. Acetaminophen and salicylates are also negative. Do feel that patient is medically clear for mental health evaluation. After mental health evaluation plan of care for patient to rest in the emergency department overnight with reassessment in the morning. Patient did admit to mental health screener that this evening he did have a gun that was unloaded but that he felt safe for having the gun. Given patient's volatility potentially secondary to marijuana usage and past history of mental health provider did inform me that she has a low threshold LILA patient but at this time he is agreeable to remaining in the emergency department overnight with reassessment to consider voluntary admission versus outpatient services tomorrow depending on the reassessment. After discussion of this plan with patient and mother who is at bedside patient does endorse some anxiety so we will give patient hydroxyzine and 1 mg p.o. Ativan and reassess. We will also plan on giving patient his normal nightly meds to see if this helps further stabilize his condition. 2119-patient continues to endorse anxiety and is requesting Ativan.-Patient needed p.o. medications versus IM and patient requesting IM medication which I feel is appropriate. We will continue to monitor patient and reassess 01/14/22 Dr. Castle 0800 -- Case endorsed to follow-up with mental health after reassessment this morning. 1045 -- patient evaluated by mental health. Plan will be for transfer to care bed. Plan will be for patient to remain in the ED at this time. 1744 -- No care bed available today. Patient reevaluated by mental health who has cleared patient for discharge charge to home with safety plan. Mom at bedside and is agreeable with plan. Patient has an in person follow-up appointment with [facility] tomorrow at 10 AM. Patient will follow-up with his primary care provider for reevaluation. Usual and customary return precautions given prior to discharge. Medical Records Medical records reviewed: Yes I reviewed the patient's medical records. Lab Data Lab results reviewed: Yes I reviewed the patient's lab results. HPI <Gurvinder Martinez NP - Last Filed: 01/14/22 08:50> General Mode of arrival: ambulatory . Date/Time Provider Initiated Documentation: 01/13/22 16:58 . Limitations to Documentation: no limitations . Information obtained by: patient, family and RN notes reviewed . History of Present Illness 31 year old M presents to the emergency department with the chief complaint of Auditory hallucinations and outburst, described as moderate, severe and similar to prior episodes, Quality is described as other (Denies pain), Patient started experiencing this week(s) (1) and it has been intermittent. Rest improves symptom(s), Other factors that worsen symptoms (Family stressors and remembrance of father's ) . Patient did receive the following treatments prior to arrival, none Related Data Home Medications Medication Instructions Recorded Confirmed bupropion HCl 150 mg tablet,12 hr 150 mg PO BID 07/12/20 01/13/22 sustained-release (Wellbutrin SR) cholecalciferol (vitamin D3) 25 50 mcg PO DAILY 07/12/20 01/13/22 mcg (1,000 unit) capsule (Vitamin D3) hydroxyzine HCl 50 mg tablet 50 mg PO BID PRN PRN 07/12/20 08/09/21 olanzapine 5 mg tablet (Zyprexa) 5 mg PO DAILY PRN PRN 07/12/20 01/13/22 omeprazole 20 mg capsule,delayed 20 mg PO DAILY 01/18/21 01/13/22 release fluoxetine 40 mg capsule 60 mg PO DAILY 06/20/21 01/13/22 topiramate 25 mg tablet 75 mg PO BID 06/20/21 01/13/22 acetaminophen 500 mg tablet 1,000 mg PO TID #90 tabs 07/31/21 08/09/21 ibuprofen 600 mg tablet 600 mg PO TID PRN pain #90 tabs 07/31/21 08/09/21 naproxen 500 mg tablet 500 mg PO DAILY 01/13/22 01/13/22 Previous Rx's Medication Instructions Recorded acetaminophen 500 mg tablet 1,000 mg PO TID #90 tabs 07/31/21 ibuprofen 600 mg tablet 600 mg PO TID PRN pain #90 tabs 07/31/21 Allergies Allergy/AdvReac Type Severity Reaction Status Date / Time erythromycin base AdvReac Mild Skin Rash Unverified 08/09/21 10:32 General Stated Complaint: PsychEval MILLER: 2 Review of Systems <Gurvinder Martinez NP - Last Filed: 01/14/22 08:50> Constitutional Constitutional: Denies body ache(s), Denies chills and Denies fever(s) Eyes Eyes: Denies change in vision ENT Ears, Nose, Mouth, and Throat: Denies sore throat and Denies throat swelling Cardiovascular Cardiovascular: Denies chest pain and Denies dyspnea Respiratory Respiratory: Denies cough and Denies dyspnea Gastrointestinal Gastrointestinal: Denies abdominal pain, Reports constipation, Denies diarrhea, Denies nausea and Denies vomiting Genitourinary Genitourinary: Denies dysuria Psychiatric Psychiatric: Reports as per HPI, Reports anxiety, Reports depression, Reports auditory hallucinations, Reports mood swings, Reports panic attacks, Denies visual hallucinations, Denies hallucinations, Denies homicidal ideation and Reports suicidal ideation Allergic/Immunologic Allergic/Immunologic: Denies throat swelling PFSH <Gurvinder Martinez NP - Last Filed: 01/14/22 08:50> All Active Problems (Updated 01/14/22 @ 18:07 by Nichol Castle DO) Depression (Chronic) Ganglion cyst of dorsum of right wrist (Acute) S/P Excision: 07/31/3021 Morbid obesity (Acute) ADHD (Acute) PTSD (post-traumatic stress disorder) (Acute) GERD (gastroesophageal reflux disease) (Chronic) FROILAN (obstructive sleep apnea) (Chronic) Periodic limb movement disorder (Acute) Psychosis, transient (Acute) Marijuana intoxication (Acute) Anxiety (Chronic) Depression (Chronic) Asthma (Chronic) Medical History Pes planus Plantar fasciitis of left foot Surgical History No significant past surgical history Social History Smoking/Tobacco Use Status: Former Tobacco Use Quit Date: 05/11/19 Smoking risk assessment performed?: Yes Alcohol Intake: current Alcohol Intake frequency: holidays/special occasions only Alcohol type: hard liquor Drug use: Daily Substance use type: marijuana Details: smoked marijuana yesterday 07.30.21 Additional Social history: Unable to assess privately Exam <Gurvinder Martinez NP - Last Filed: 01/14/22 08:50> Const General: cooperative Orientation: alert, awake and oriented x3 Limitations: mental status not altered HENNV Head: normal to inspection, normocephalic and atraumatic Ears: hearing grossly normal bilaterally Mouth: moist mucous membranes Eyes General: appearance normal, both eyes and all related structures Pupils: PERRL EOM: EOM intact bilaterally Neck Thyroid: thyroid normal Resp Effort & Inspection: normal respiratory effort, able to speak in complete sentences and no respiratory distress Auscultation: clear to auscultation bilaterally Cardio Rate: regular rate and not tachycardic Rhythm: regular rhythm Heart Sounds: S1 normal, S2 normal, no click, no gallops, no murmurs and no rubs GI Palpation: soft, not firm, no guarding, not rigid and nontender Auscultation: normal bowel sounds Neuro General: patient alert, patient awake, patient oriented x3, gait normal, moves all extremities and no focal motor deficits Cognition: normal cognition Speech: speech normal Psych Appearance: grossly normal Mental Status: mental status grossly normal Speech and Movement: speech and movement normal and speech clear Mood: anxious mood Affect: indifferent and blunted Attitude: cooperative Thought Process: normal Thought Content: normal and suicidality Course <Gurvinder Martinez NP - Last Filed: 01/14/22 08:50> Vital Signs Vital signs: Vital Signs Temperature 36.9 C 01/13/22 16:31 Pulse 103 H 01/13/22 16:31 Blood Pressure 156/105 H 01/13/22 16:31 Pulse Oximetry 98 01/13/22 16:31 Temperature 36.9 C 01/13/22 16:31 Temperature Source Temporal Artery Scan 01/13/22 16:31 Pulse 103 H 01/13/22 16:31 Respiratory Effort Non-Labored 01/13/22 17:21 Blood Pressure 156/105 H 01/13/22 16:31 Blood Pressure Position Sitting 01/13/22 16:31 Pulse Oximetry 98 01/13/22 16:31 Oxygen Delivery Method Room Air 01/13/22 16:31 Oxygen Flow Rate 0 01/13/22 16:31 Lab/Test Results Lab/Test Results: Laboratory Tests Range/Units 01/13/22 01/13/22 01/13/22 16:45 16:45 17:30 WBC (4.4-10.8) 10^3/uL RBC (4.36-5.78) 10^6/uL Hgb (13.5-17.5) g/dL Hct (40.0-50.0) % MCV (80-95) fL MCH (27.0-33.0) pg MCHC (32.0-36.0) % RDW (11.8-14.1) % Plt Count (130-400) 10^3/uL MPV (8.0-11.0) fL Immature Gran % Neutrophils % Lymphocytes % Monocytes % Eosinophils % Basophils % Nucleated RBC % (0.0-0.3) % Absolute Neutrophils (1.2-6.7) 10^3/uL Absolute Lymphocytes (1.2-3.4) 10^3/uL Absolute Monocytes (0.1-0.8) 10^3/uL Absolute Eosinophils (0.0-0.7) 10^3/uL Absolute Basophils (0.0-0.2) 10^3/uL Sodium (136-145) mmol/L 142 Potassium (3.5-5.1) mmol/L 3.6 Chloride (98-107) mmol/L 108 H Carbon Dioxide (21.0-32.0) mmol/L 24.6 Anion Gap (3-11) mmol/L 9.4 BUN (7-18) mg/dL 10 Creatinine (0.70-1.30) mg/dL 1.1 Est GFR (CKD-EPI 2020) (mL/min/1.73m2) 92.61 Glucose (74-106) mg/dL 108 H Calcium (8.5-10.1) mg/dL 9.0 Total Bilirubin (0.2-1.0) mg/dL 0.6 AST (15-37) U/L 20 ALT (16-63) U/L 40 Alkaline Phosphatase (46-116) U/L 109 Total Protein (6.4-8.2) g/dL 7.3 Albumin (3.4-5.0) g/dL 4.7 TSH (0.36-3.74) uIU/mL 1.02 Urine Color (Yellow) Yellow Urine Clarity (Clear) Sl Cloudy Urine pH (5-8) 8.5 H Ur Specific [place] (1.005-1.025) 1.015 Urine Protein (Negative) mg/dL Trace H Urine Ketones (Negative) mg/dL Negative Urine Blood (Negative) Negative Urine Nitrite (Negative) Negative Urine Bilirubin (Negative) Negative Urine Urobilinogen (Up TO 0.2) EU/dL 1.0 H Ur Leukocyte Esterase (Negative) Negative Urine RBC (0-2) HPF Negative Urine WBC (0-5) HPF 0-2 Ur Epithelial Cells (Negative) HPF Rare Urine Crystals (Negative) HPF Many Amorphous Urine Bacteria (Negative) HPF Negative Urine Casts (Negative) LPF Negative Urine Mucus (Negative) Moderate Ur Culture Indicated? No Urine Glucose (Negative) mg/dL Negative Salicylates (<2.8) mg/dL Urine Opiates Screen (Negative) Negative Urine Methadone Screen (Negative) Negative Acetaminophen (10-30) ug/mL Ur Barbiturates Screen (Negative) Negative Ur Tricyclics Screen (Negative) Negative Ur Amphetamines Screen (Negative) Negative U Benzodiazepines Scrn (Negative) Negative Urine Cocaine Screen (Negative) Negative Ur THC Screen (Negative) Positive A Ethyl Alcohol (<10) mg/dL < 3.0 Range/Units 01/13/22 01/13/22 17:30 17:30 WBC (4.4-10.8) 10^3/uL 11.28 H RBC (4.36-5.78) 10^6/uL 4.88 Hgb (13.5-17.5) g/dL 14.1 Hct (40.0-50.0) % 43.4 MCV (80-95) fL 89 MCH (27.0-33.0) pg 28.9 MCHC (32.0-36.0) % 32.5 RDW (11.8-14.1) % 14.2 H Plt Count (130-400) 10^3/uL 353 MPV (8.0-11.0) fL 9.6 Immature Gran % 0.4 Neutrophils % 77.9 Lymphocytes % 11.5 Monocytes % 8.3 Eosinophils % 1.2 Basophils % 0.7 Nucleated RBC % (0.0-0.3) % 0.0 Absolute Neutrophils (1.2-6.7) 10^3/uL 8.79 H Absolute Lymphocytes (1.2-3.4) 10^3/uL 1.30 Absolute Monocytes (0.1-0.8) 10^3/uL 0.94 H Absolute Eosinophils (0.0-0.7) 10^3/uL 0.14 Absolute Basophils (0.0-0.2) 10^3/uL 0.08 Sodium (136-145) mmol/L Potassium (3.5-5.1) mmol/L Chloride (98-107) mmol/L Carbon Dioxide (21.0-32.0) mmol/L Anion Gap (3-11) mmol/L BUN (7-18) mg/dL Creatinine (0.70-1.30) mg/dL Est GFR (CKD-EPI 2020) (mL/min/1.73m2) Glucose (74-106) mg/dL Calcium (8.5-10.1) mg/dL Total Bilirubin (0.2-1.0) mg/dL AST (15-37) U/L ALT (16-63) U/L Alkaline Phosphatase (46-116) U/L Total Protein (6.4-8.2) g/dL Albumin (3.4-5.0) g/dL TSH (0.36-3.74) uIU/mL Urine Color (Yellow) Urine Clarity (Clear) Urine pH (5-8) Ur Specific [place] (1.005-1.025) Urine Protein (Negative) mg/dL Urine Ketones (Negative) mg/dL Urine Blood (Negative) Urine Nitrite (Negative) Urine Bilirubin (Negative) Urine Urobilinogen (Up TO 0.2) EU/dL Ur Leukocyte Esterase (Negative) Urine RBC (0-2) HPF Urine WBC (0-5) HPF Ur Epithelial Cells (Negative) HPF Urine Crystals (Negative) HPF Urine Bacteria (Negative) HPF Urine Casts (Negative) LPF Urine Mucus (Negative) Ur Culture Indicated? Urine Glucose (Negative) mg/dL Salicylates (<2.8) mg/dL < 2.8 Urine Opiates Screen (Negative) Urine Methadone Screen (Negative) Acetaminophen (10-30) ug/mL < 2 Ur Barbiturates Screen (Negative) Ur Tricyclics Screen (Negative) Ur Amphetamines Screen (Negative) U Benzodiazepines Scrn (Negative) Urine Cocaine Screen (Negative) Ur THC Screen (Negative) Ethyl Alcohol (<10) mg/dL Sign Out <Gurvinder Martinez NP - Last Filed: 01/14/22 08:50> Sign Out Data: Sign Out Comment: Patient pending disposition after reassessment in the morning by mental health to establish appropriate plan depending on how patient responds to restarting his meds and sleep. If patient were to attempt to lose please contact mental health for strong consideration EE. Last updated by Gurvinder Martinez NP at 01/13/22 22:59 Sign Out Comment: Stable throughout the night. No interventions needed. Pending reassessment by mental health in the morning Last updated by Tyree Grove DO at 01/14/22 07:04 PAWSS <Gurvinder Martinez NP - Last Filed: 01/14/22 08:50> Have you Been Recently Intoxicated or Drunk Within the Last 30 days?: No Have you Ever Experienced Previous Episodes of Alcohol Withdrawal?: No Have you ever Experienced Withdrawal Seizures?: No Have you ever Experienced Delirium Tremens(DT)s?: No Have you ever undergone Alcohol Rehabilitation Treatment (i.e, inpt ot outpatient treatment programs)?: No Have you ever Experienced Blackouts?: No Have you ever Combined Alcohol with other Downers within the last 90 days?: No Have you ever Combined Alcohol with any other Substance of Abuse during the last 90 days?: No Positive Blood Alcohol level on Presentation? [PCS.BAL]: No Evidence of Increased Autonomic Activity (i.e. HR>120, tremor, sweating, agitation, nausea)?: No Result: 0 <Nichol Castle DO - Last Filed: 01/16/22 14:27> Result: 0
[2022-01-13] MEDS: LORazepam 20 MG/10 ML VIAL IM (21:38)
[2022-01-13 22:39] VITALS: PULSE 91; O2SAT 97
[2022-01-14 12:19] VITALS: BP 164/92; PULSE 106; RESP 18; TEMP 36.7; O2SAT 98
--- NOTE | 2022-01-14 12:33 | PDOC.MHPN2 ---
Date of service: 01/14/22 Time of Service: 10:10 Mental Health Emergency Note Release [facility] release signed:: No Reason for Visit Client presented at [facility] for SI. In the last 2 weeks has the pt presented for ES prior to today?: Unknown Non Suicidal Self Injury Current: No History: yes, headbanging when stressed Safety Risk/Harm to Self or Others Current Ideation to Harm Self or Others: No Risk: Does risk to harm exist?: No Asssessment/Mental Status Appearance: Disheveled Attitude: Guarded Behavior: Agitated Speech: Soft and Hesitant Affect: Flat and Cogruent with mood Mood: Anxious and Angry Thought process: Goal directed (Client states he wants to go home) Hallucinations: yes, Auditory (Client reports he hears voices and his intrustive thoughts to harm himself) Delusions: No evidence Attention: Unremarkable Perception: Not impaired Orientation: Fully orientated Memory: Intact Insight: Poor Judgement: Poor Neurovegetative Symptoms Sleep: Increase (Client's mother reports he slept from 10 pm to 10 am) Appetitie: No change Interests: No change Energy: No change Libido: Not applicable Impression This assembly instructions writer reassessed client via zoom at [facility] ED. Client appeared disheveled, agitated and guarded in his responses to this assembly instructions writer. Client denies actively endorsing HI/SI/NSSI. Client denies intent/plan. However, client responded to this assembly instructions writer not right now in regards to SI. Client's sleep has improved, client's mother reports client slept from 10 pm to 10 am. Client reports he experiences intrusive thoughts regarding harming himself a few times a day, but has not experienced these thoughts since being in the ED. Client reports last time he had these thoughts a day ago. Client reports that he has had these thoughts from a very young age (client could not identify what age that was) and he has learned to deal with them in one ear out the other. Client stated these intrusive thoughts are stress induced that he feeds off of everyone's emotions. Client reports this weekend the stress led him to take his gun and put it against his head, client states he felt relief feeling the cold from the gun against his head and relaxed him. Client is displaying poor judgment/insight. Referral for carebed will be submitted for stabilization for client med delegation and OP supports in place. Client will remain in ED until placement is secured in carebed. Client was informed if he were attempt to leave AMA a mental health warrant would most likely be written due to concern for his safety/ wellbeing. Client stated he understood and appeared tearful. Plan/Disposition Recommended Disposition: Crisis bed, ([facility]) facility contacted. Status of Crisis Bed acceptance: Pending review. Plan: Client is to remain in ED until placement for care bed is securred. If client were to attempt to leave AMA please notify ES. Person reported agreement to plan: Yes Facilities contacted if Applicable Other: Other (Care Bed [facility]) accepted Pending review Reports/communication Outcome discussed with: ED/Personnel (MD Nichol Castle)
--- NOTE | 2022-01-14 15:54 | NUR.NOTE ---
Nursing Note: patients medications are at the pharmacy.
[2022-01-14] MEDS: LORazepam 1 MG TAB PO (16:02)
[2022-01-14] MEDS: LORazepam 1 MG TAB 2 MG PO (18:36)
--- NOTE | 2022-01-14 18:51 | NUR.NOTE ---
Nursing Note: Safety plan given to mother.
--- NOTE | 2022-01-15 13:09 | PDOC.MHPN2 ---
Date of service: 01/14/22 Time of Service: 16:47 Mental Health Emergency Note Release [facility] release signed:: No Reason for Visit Client presented to ED for SI In the last 2 weeks has the pt presented for ES prior to today?: Unknown Safety Risk/Harm to Self or Others Current Ideation to Harm Self or Others: No Asssessment/Mental Status Appearance: Disheveled Attitude: Cooperative and Friendly Behavior: Unremarkable Speech: Normal Affect: Flat Mood: Anxious Thought process: Unremarkable Hallucinations: No evidence Delusions: No evidence Attention: Unremarkable Perception: Not impaired Orientation: Fully orientated Memory: Intact Insight: Good Judgement: Good Impression No care bed available today. Client will be discharged on safety plan. Client and client's mother Navya are in agreeable of the steps listed: 1.? Make follow-up appointment with PCP ([facility]) 2.? Client will reengage in therapy sessions through [facility] with Franc Chandra 3.? Client will make follow-up appointment with Med. Provider 4.? Client will attend in-person session with ES 01/15 at 10 am at [address] [place] [address] 5.? Complete check in calls with ES daily at 12:30 pm until 01/17/2022 6.? All access to means (guns) will be removed from the home List was emailed to client by ED staff. Plan/Disposition Recommended Disposition: Community resources and Other (Active Saftey plan in place). Plan: Discharge on Saftey Plan Reports/communication Outcome discussed with: ED/Personnel (MS Nichol Castle) and Other (Client's mother Navya)
== END 2022-01-14 18:56 | disposition home or self-care (01) ==
PROVIDERS: Nurse Practitioner Family; Emergency Provider Physician Assistant; PCP Nurse Practitioner Family
DX: F32.A Depression, unspecified (principal); D72.829 Elevated white blood cell count, unspecified; F41.9 Anxiety disorder, unspecified; Z87.891 Personal history of nicotine dependence
CPT/HCPCS: 36415; 80053; 80307; 96372; 99284; 80320; 80329; 81003; 81015; 84443; 85025; J3490

== ENCOUNTER 2022-01-23 21:24 | Outpatient (REF) | payer MEDICAID, SELFPAY | END 2022-01-23 21:25 | disposition home or self-care (01) | LOC: NCHCN 21:24 | PROVIDERS: PCP Nurse Practitioner Family; Visit Provider Nurse Practitioner Family | DX: Q89.9 Congenital malformation, unspecified (principal) | CPT/HCPCS: 87077; 87070; 87186; 87205 ==

== ENCOUNTER 2022-02-03 12:49 | Emergency (ER) | payer MEDICAID, SELFPAY ==
[2022-02-03] VITALS (39 sets, daily range): BP systolic 133–167; BP diastolic 78–107; PULSE 87–108; RESP 15–29; TEMP 36.7; O2SAT 96–100
--- NOTE | 2022-02-03 12:45 | RT.EKG_ITS ---
APPROVED REPORT Exam: Resting ECG Reason for Exam: OD Patient Location: E HR:89 bpm ECG Measurements Heart Rate 89 AXIS MS 134 P 42 QRSd 89 QRS 23 QT 351 T 32 QTc 428 Conclusion Sinus rhythm...normal P axis, V-rate 60- 99 non-diagnostic EKG I have reviewed and interpreted ECG and agree with software generated interpretation.
--- NOTE | 2022-02-03 12:52 | ED.GENADUL_ITS ---
Discharge Plan Disposition Patient Disposition: HOME Condition: Stable Discharge Details Clinical Impression: Accidental overdose Primary Care Provider: Unknown,Unknown ED Provider: Gurvinder Martinez Home Meds and New Rx's Prescriptions: No Action fluoxetine 40 mg capsule 60 mg PO DAILY topiramate 25 mg tablet 75 mg PO BID naproxen 500 mg tablet 500 mg PO DAILY Label Comments: TAKE 1 TABLET BY MOUTH TWICE DAILY bupropion HCl [Wellbutrin SR] 150 mg Tablet Sustained-Release 12 Hr 150 mg PO BID olanzapine [Zyprexa] 5 mg Tablet 10 mg PO BID hydroxyzine HCl 50 mg Tablet 50 mg PO BID PRN PRN Label Comments: pt unsure of medication Rx Instructions: 1/2 to 1 tab BID PRN cholecalciferol (vitamin D3) [Vitamin D3] 25 mcg (1,000 unit) Capsule 50 mcg PO DAILY omeprazole 20 mg capsule,delayed release(DR/EC) 20 mg PO DAILY Label Comments: TAKE 1 CAPSULE BY MOUTH DAILY acetaminophen 500 mg tablet 1,000 mg PO TID Qty: 90 0RF ibuprofen 600 mg tablet 600 mg PO TID PRN (Reason: pain) Qty: 90 0RF Discharge Instructions Additional Instructions: Please ensure that when you use [id number] medication that you do not exceed 4000 mg of acetaminophen in a 24-hour period for no more than 2400 mg of ibuprofen/Motrin in a 24 period. Also be mindful that both ibuprofen naproxen and aspirin are all considered NSAIDs and may further cause GI issues including GI bleeding if you take too much. Please stay well-hydrated and return to the emergency department for any new or significant worsening of your symptoms. Please follow-up with your primary care provider as needed for further reassessment of your chronic knee pain Referrals: Aarti Skaggs [NURSE PRACTITIONER] - (As needed for reassessment) Discharge Data Discharge Date/Time-TO BE ENTERED AT DEPARTURE: 02/03/22 19:58 Medical Decision Making <DIVINE Owens - Last Filed: 02/10/22 22:27> Patient is pleasant 31 year old male presenting today with c/c of NSAID and APAP OD. States that he took this within the past hour. Denies suicidal attempt. Repots that he took this in effort to help with discomfort just when he awoke from a nap and was feeling groggy. He states that he has chronic knee pain, took the AOAO and NSAID and attempt to help with discomfort but is concerned that he took more than he should have. Denies any suicidal intent, no thoughts of self harm. On exam, patient appears nontoxic, abdomen benign. Consulted with Poison Control. They recommended against any charcoal or decontamination at this time. Advised that we will need 4 hour APAP level. Advised we should obtain ECG. ECG obtained and reviewed by maninder with no acute abnormality noted. Labs reviewed, no signficant abnormality at this time. Slightly elevated APAP level, will need repeat at 4hrs. Mom pulled me aside. She reports that patient has hx of depression and anxiety. She is concerne dthat this is associated with attempt at self harm. She is requesting evaluation with . Patient continues to deny any thoughts of self harm but I agree with evaluation by . At the end of my shift, care transitioned to Denis Martinez NP with MH evaluation pending and repeat APAP levels 1700-assumed care from DIVINE Owens. Patient pending repeat acetaminophen level and mental health evaluation for concerning statements brought up by family. Patient remains in stable condition Received repeat acetaminophen level which is 56. Spoke with Anthony at [facility] whom stated that this appears to be an expected level and patient is medically clear and not candidate for any further treatment. We will contact mental health for screening due to family concern. Mental health screener evaluated patient and agrees that patient is safe for discharge disposition and signs no concern for suicidal behavior. Patient to be discharged and recommended follow-up with primary care provider for chronic knee pain and to continue seeking mental health services as needed. After discussion of diagnosis and plan of care patient and mother has no further needs, questions, or concerns and states clear understanding to return to the emergency department for any worsening symptoms. This documentation was generated using Shape Collageation system, please disregard any oddities of phrase or misspellings. <Gurvinder Martinez NP - Last Filed: 02/03/22 21:23> Patient is pleasant 31 year old male presenting today with c/c of NSAID and APAP OD. States that he took this within the past hour. Denies suicidal attempt. Repots that he took this in effort to help with discomfort just when he awoke from a nap and was feeling groggy 1700-assumed care from DIVINE Owens. Patient pending repeat acetaminophen level and mental health evaluation for concerning statements brought up by family. Patient remains in stable condition Received repeat acetaminophen level which is 56. Spoke with Anthony at [facility] whom stated that this appears to be an expected level and patient is medically clear and not candidate for any further treatment. We will contact mental health for screening due to family concern. Mental health screener evaluated patient and agrees that patient is safe for discharge disposition and signs no concern for suicidal behavior. Patient to be discharged and recommended follow-up with primary care provider for chronic knee pain and to continue seeking mental health services as needed. After discussion of diagnosis and plan of care patient and mother has no further needs, questions, or concerns and states clear understanding to return to the emergency department for any worsening symptoms. This documentation was generated using Shape Collageation system, please disregard any oddities of phrase or misspellings. Lab Data Lab results reviewed: Yes I reviewed the patient's lab results. HPI <DIVINE Owens - Last Filed: 02/10/22 22:27> General Date/Time Provider Initiated Documentation: 02/03/22 12:52 . Limitations to Documentation: no limitations . Information obtained by: patient, family, EMS and RN notes reviewed . History of Present Illness 31 year old M presents to the emergency department with the chief complaint of APAP and NSAID OD, Patient started experiencing this hour(s) (1) Patient notes no other symptoms. (denies SI, HI). Patient did receive the following treatments prior to arrival, none Related Data Home Medications Medication Instructions Recorded Confirmed bupropion HCl 150 mg tablet,12 hr 150 mg PO BID 07/12/20 02/03/22 sustained-release (Wellbutrin SR) cholecalciferol (vitamin D3) 25 50 mcg PO DAILY 07/12/20 02/03/22 mcg (1,000 unit) capsule (Vitamin D3) hydroxyzine HCl 50 mg tablet 50 mg PO BID PRN PRN 07/12/20 08/09/21 olanzapine 5 mg tablet (Zyprexa) 10 mg PO BID 07/12/20 02/03/22 omeprazole 20 mg capsule,delayed 20 mg PO DAILY 01/18/21 02/03/22 release fluoxetine 40 mg capsule 60 mg PO DAILY 06/20/21 02/03/22 topiramate 25 mg tablet 75 mg PO BID 06/20/21 02/03/22 acetaminophen 500 mg tablet 1,000 mg PO TID #90 tabs 07/31/21 02/03/22 ibuprofen 600 mg tablet 600 mg PO TID PRN pain #90 tabs 07/31/21 02/03/22 naproxen 500 mg tablet 500 mg PO DAILY 01/13/22 02/03/22 Previous Rx's Medication Instructions Recorded acetaminophen 500 mg tablet 1,000 mg PO TID #90 tabs 07/31/21 ibuprofen 600 mg tablet 600 mg PO TID PRN pain #90 tabs 07/31/21 Allergies Allergy/AdvReac Type Severity Reaction Status Date / Time erythromycin base AdvReac Mild Skin Rash Unverified 02/03/22 14:02 plastics AdvReac Mild Skin Rash Uncoded 02/03/22 14:03 General MILLER: 2 Review of Systems <DIVINE Owens - Last Filed: 02/10/22 22:27> Constitutional Constitutional: Reports as per HPI, Denies chills, Denies fatigue and Denies fever(s) Cardiovascular Cardiovascular: Reports as per HPI, Denies chest pain and Denies dyspnea Respiratory Respiratory: Reports as per HPI, Denies cough and Denies dyspnea Gastrointestinal Gastrointestinal: Reports as per HPI Musculoskeletal Musculoskeletal: Reports as per HPI and Denies back pain Integumentary/Breasts Skin/Breast: Reports as per HPI and Denies rash Neurologic Neurologic: Reports as per HPI Psychiatric Psychiatric: Denies homicidal ideation and Denies suicidal ideation Endocrine Endocrine: Denies fatigue PFSH <DIVINE Owens - Last Filed: 02/10/22 22:27> All Active Problems (Updated 02/03/22 @ 19:40 by Gurvinder Martinez NP) Depression (Chronic) Accidental overdose (Acute) Ganglion cyst of dorsum of right wrist (Acute) S/P Excision: 07/31/3021 Morbid obesity (Acute) ADHD (Acute) PTSD (post-traumatic stress disorder) (Acute) GERD (gastroesophageal reflux disease) (Chronic) FROILAN (obstructive sleep apnea) (Chronic) Periodic limb movement disorder (Acute) Psychosis, transient (Acute) Marijuana intoxication (Acute) Anxiety (Chronic) Depression (Chronic) Asthma (Chronic) Medical History Pes planus Plantar fasciitis of left foot Surgical History No significant past surgical history Social History Smoking/Tobacco Use Status: Former Tobacco Use Quit Date: 05/11/19 Smoking risk assessment performed?: Yes Alcohol Intake: current Alcohol Intake frequency: holidays/special occasions only Alcohol type: hard liquor Drug use: Occasionally Substance use type: marijuana Do you feel safe at home: Yes Additional Social history: Unable to assess privately Exam <DIVINE Owens - Last Filed: 02/10/22 22:27> Const General: cooperative, healthy appearing, comfortable, no acute distress and well developed Nutritional Appearance: average body habitus and well nourished Orientation: alert and awake HENMT Head: normal to inspection Mouth: moist mucous membranes Resp Effort & Inspection: normal respiratory effort, able to speak in complete sentences and no respiratory distress Auscultation: clear to auscultation bilaterally, no rales, no rhonchi and no wheezes Cardio Rate: regular rate Rhythm: regular rhythm Heart Sounds: S1 normal and S2 normal GI Inspection: normal to inspection Palpation: soft, no hepatosplenomegaly and nontender Back/Spine/Pelvis Back: no CVA tenderness Skin General skin exam: no rashes or lesions noted Trauma: no lacerations or abrasions Neuro General: patient alert and patient awake Cognition: normal cognition Speech: speech normal Gait: normal gait Psych Appearance: grossly normal and well kempt Mental Status: mental status grossly normal Speech and Movement: speech and movement normal Mood: congruent mood Affect: indifferent Attitude: cooperative Thought Process: normal Thought Content: normal Insight: fair Judgment: fair Sign Out <DIVINE Owens - Last Filed: 02/10/22 22:27> Sign Out Data: Sign Out Comment: Care transition to Gurvinder Martinez NP. Patient took a handful of acetaminophen and ibuprofen. Repeat 4-hour acetaminophen level is pending. Patient to be evaluated by mental health although he adamantly denies any suicidal intent with his actions today. [place] that this was an accident after waking from a nap. Per poison control, did not address it is unlikely to find toxicity but recommended 4-hour acetaminophen level. Last updated by Santa Burks PA at 02/03/22 17:01
[2022-02-03 13:39] LABS: Abs Immature Grans 0.06 10^3/uL (0.0-0.06); Absolute Basophil Count 0.11 10^3/uL (0.0-0.2); Absolute Eosinophil Count 0.18 10^3/uL (0.0-0.7); Absolute Lymphocyte Count 1.26 10^3/uL (1.2-3.4); Absolute Monocyte Count 0.85 10^3/uL (0.1-0.8); Absolute Neutrophil Count 7.57 10^3/uL (1.2-6.7); Basophils % 1.1; Eosinophils % 1.8; HCT 44.2 % (40.0-50.0); HGB 14.6 g/dL (13.5-17.5); Immature Grans % 0.6; Lymphocytes % 12.6; MCH 29.9 pg (27.0-33.0); MCV 91 fL (80-95); MPV 9.7 fL (8.0-11.0); Monocytes % 8.5; Neutrophils % 75.4; Platelet Count 290 10^3/uL (130-400); RBC 4.88 10^6/uL (4.36-5.78); RDW 13.7 % (11.8-14.1); RDW-SD 46.3 fL; WBC 10.03 10^3/uL (4.4-10.8)
[2022-02-03] MEDS: Normal Saline 1,000 ML 1000 ML IV (13:46)
[2022-02-03 13:55] LABS: ALT 32 U/L (16-63); AST 13 U/L (15-37); Albumin 4.2 g/dL (3.4-5.0); Alkaline Phosphatase 135 U/L (46-116); Anion Gap 7.2 mmol/L (3-11); BUN 10 mg/dL (7-18); Bilirubin, Total 0.4 mg/dL (0.2-1.0); CO2 26.8 mmol/L (21.0-32.0); CREATININE 1.2 mg/dL (0.70-1.30); Calcium 9.1 mg/dL (8.5-10.1); Chloride 110 mmol/L (98-107); Estimated GFR 83.43 (mL/min/1.73m2); Glucose 78 mg/dL (74-106); Magnesium 2.1 mg/dL (1.8-2.4); Potassium 3.9 mmol/L (3.5-5.1); Sodium 144 mmol/L (136-145); Total Protein 6.8 g/dL (6.4-8.2)
[2022-02-03 13:59] LABS: ETHANOL BLOOD < 3.0 mg/dL (<10)
[2022-02-03 14:12] LABS: Acetaminophen 16 ug/mL (10-30); Salicylate < 2.8 mg/dL (<2.8)
[2022-02-03 14:47] LABS: Bilirubin Negative (Negative); Blood Negative (Negative); Clarity Clear (Clear); Glucose Negative (Negative); Ketones Negative (Negative); Leukocyte Esterase Negative (Negative); Nitrite Negative (Negative); Specific Gravity 1.015 (1.005-1.025); Urobilinogen 0.2 EU/dL (Up TO 0.2)
[2022-02-03 15:31] LABS: *AMPHETAMINES SCREEN URINE Negative (Negative); *BARBITURATES SCREEN URINE Negative (Negative); *BENZODIAZEPINES SCREEN URINE Negative (Negative); Cannabinoids THC Positive (Negative); Cocaine Screen,Urine Negative (Negative); METHADONE URINE SCREEN Negative (Negative); OPIATES URINE SCREEN Negative (Negative)
[2022-02-03 15:33] LABS: Tricyclic Antidepressants Negative (Negative)
[2022-02-03 18:20] LABS: Acetaminophen 56 ug/mL (10-30)
== END 2022-02-03 19:58 | disposition home or self-care (01) ==
PROVIDERS: Physician Assistant; Emergency Provider Nurse Practitioner Family
DX: T39.391A Poisoning by other nonsteroidal anti-inflammatory drugs [NSAID], accidental (unintentional), initial encounter (principal); T54.0X1A Toxic effect of phenol and phenol homologues, accidental (unintentional), initial encounter; R89.2 Abnormal level of other drugs, medicaments and biological substances in specimens from other organs, systems and tissues; G89.29 Other chronic pain; Z87.891 Personal history of nicotine dependence
CPT/HCPCS: 36415; 80053; 80307; 93005; 96360; 99284; 80320; 80329; 81003; 83735; 85025; 93010

== ENCOUNTER 2022-02-11 15:06 | Outpatient (REF) | payer MEDICAID, SELFPAY ==
[2022-02-11 19:02] LABS: HCT 45.5 % (40.0-50.0); HGB 15.2 g/dL (13.5-17.5); MCH 29.8 pg (27.0-33.0); MCHC 33.4 % (32.0-36.0); MCV 89 fL (80-95); MPV 9.7 fL (8.0-11.0); Platelet Count 332 10^3/uL (130-400); RDW 13.9 % (11.8-14.1); RDW-SD 45.2 fL; WBC 10.87 10^3/uL (4.4-10.8)
[2022-02-13 06:08] LABS: Vitamin D 25 Total 37.3 ng/mL (30-100)
== END 2022-02-11 15:07 | disposition home or self-care (01) ==
LOC: NCHCN 15:06
PROVIDERS: Visit Provider Nurse Practitioner Family
DX: F32.9 Major depressive disorder, single episode, unspecified (principal); F41.1 Generalized anxiety disorder; I10 Essential (primary) hypertension; M25.561 Pain in right knee; M25.562 Pain in left knee
CPT/HCPCS: 82306; 85027

== ENCOUNTER 2022-03-05 21:27 | Outpatient (REF) | payer MEDICAID, SELFPAY ==
[2022-03-05 21:09] LABS: Anion Gap 10.5 mmol/L (3-11); BUN 12 mg/dL (7-18); CO2 20.5 mmol/L (21.0-32.0); CREATININE 1.2 mg/dL (0.70-1.30); Calcium 8.8 mg/dL (8.5-10.1); Chloride 110 mmol/L (98-107); Estimated GFR 83.43 (mL/min/1.73m2); Glucose 103 mg/dL (74-106); Potassium 3.7 mmol/L (3.5-5.1); Sodium 141 mmol/L (136-145)
== END 2022-03-05 21:28 | disposition home or self-care (01) ==
LOC: NCHCN 21:27
PROVIDERS: PCP Nurse Practitioner Family; Visit Provider Nurse Practitioner Family
DX: I10 Essential (primary) hypertension (principal)
CPT/HCPCS: 80048

== ENCOUNTER 2023-03-04 12:41 | Outpatient (REF) | payer MEDICAID, SELFPAY ==
[2023-03-04 16:01] LABS: HCT 44.6 % (40.0-50.0); HGB 14.8 g/dL (13.5-17.5); MCH 28.7 pg (27.0-33.0); MCHC 33.2 % (32.0-36.0); MCV 86 fL (80-95); MPV 9.6 fL (8.0-11.0); Platelet Count 337 10^3/uL (130-400); RBC 5.16 10^6/uL (4.36-5.78); RDW 12.8 % (11.8-14.1); RDW-SD 40.2 fL; WBC 8.74 10^3/uL (4.4-10.8)
[2023-03-04 16:51] LABS: ALT 50 U/L (16-63); AST 15 U/L (15-37); Albumin 4.2 g/dL (3.4-5.0); Alkaline Phosphatase 144 U/L (46-116); Bilirubin, Total 0.3 mg/dL (0.2-1.0); Calculated LDL 162 mg/dL (<100); Cholesterol 244 mg/dL (<200); HDL Cholesterol 40 mg/dL (40-60); Total Protein 6.3 g/dL (6.4-8.2); Triglyceride 212 mg/dL (<150)
[2023-03-04 17:04] LABS: Hemoglobin A1C 5.1 % (<5.7)
[2023-03-04 17:59] LABS: Bilirubin, Direct 0.1 mg/dL (0.0-0.2)
== END 2023-03-04 12:42 | disposition home or self-care (01) ==
LOC: NCHCN 12:41
PROVIDERS: PCP Nurse Practitioner Family; Visit Provider Nurse Practitioner Family
DX: I10 Essential (primary) hypertension (principal); K21.9 Gastro-esophageal reflux disease without esophagitis; E66.01 Morbid (severe) obesity due to excess calories
CPT/HCPCS: 80061; 80076; 85027; 83036

== ENCOUNTER 2023-06-10 13:38 | Outpatient (REF) | payer MEDICAID, SELFPAY ==
[2023-06-10 16:05] LABS: TSH (W/Ref FT4) 2.07 uIU/mL (0.36-3.74)
[2023-06-10 16:48] LABS: Vitamin D 25 Total 26.8 ng/mL (30-100)
== END 2023-06-10 13:39 | disposition home or self-care (01) ==
LOC: NCHCN 13:38
PROVIDERS: PCP Nurse Practitioner Family; Visit Provider Nurse Practitioner Family
DX: R63.5 Abnormal weight gain (principal); E55.9 Vitamin D deficiency, unspecified
CPT/HCPCS: 82306; 84443

== ENCOUNTER 2023-08-24 15:35 | Outpatient (REF) | payer MEDICAID, SELFPAY | END 2023-08-24 15:36 | disposition home or self-care (01) | LOC: NCHCN 15:35 | PROVIDERS: PCP Nurse Practitioner Family; Visit Provider Nurse Practitioner Family | DX: J02.9 Acute pharyngitis, unspecified (principal) | CPT/HCPCS: 87070 ==

== ENCOUNTER 2024-02-01 12:11 | Outpatient (REF) | payer MEDICAID, SELFPAY ==
[2024-02-01 16:35] LABS: ALT 65 U/L (16-63); AST 25 U/L (15-37); Albumin 3.9 g/dL (3.4-5.0); Alkaline Phosphatase 138 U/L (46-116); Anion Gap 11.7 mmol/L (3-11); BUN 15 mg/dL (7-18); Bilirubin, Total 0.38 mg/dL (0.2-1.0); CO2 23.3 mmol/L (21.0-32.0); CREATININE 1.2 mg/dL (0.70-1.30); Calcium 8.6 mg/dL (8.5-10.1); Calculated LDL 124 mg/dL (<100); Chloride 110 mmol/L (98-107); Cholesterol 199 mg/dL (<200); Glucose 78 mg/dL (74-106); HDL Cholesterol 34 mg/dL (40-60); Potassium 3.9 mmol/L (3.5-5.1); Sodium 145 mmol/L (136-145); Total Protein 6.6 g/dL (6.4-8.2); Triglyceride 209 mg/dL (<150)
== END 2024-02-01 12:12 | disposition home or self-care (01) ==
LOC: NCHCN 12:11
PROVIDERS: PCP Physician Assistant Medical; Visit Provider Physician Assistant Medical
DX: I10 Essential (primary) hypertension (principal); E66.01 Morbid (severe) obesity due to excess calories; E55.9 Vitamin D deficiency, unspecified
CPT/HCPCS: 80053; 80061; 82306

== ENCOUNTER 2025-02-27 13:36 | Outpatient (REF) | payer MEDICAID, SELFPAY ==
[2025-02-27 15:55] LABS: HCT 44.2 % (40.0-50.0); HGB 14.4 g/dL (13.5-17.5); MCH 28.8 pg (27.0-33.0); MCHC 32.6 % (32.0-36.0); MCV 88 fL (80-95); MPV 10.4 fL (8.0-11.0); Platelet Count 295 10^3/uL (130-400); RBC 5.00 10^6/uL (4.36-5.78); RDW 13.2 % (11.8-14.1); RDW-SD 42.3 fL; WBC 10.47 10^3/uL (4.4-10.8)
[2025-02-27 16:14] LABS: Hemoglobin A1C 5.2 % (<5.7)
[2025-02-27 16:43] LABS: ALT 92 U/L (16-63); AST 22 U/L (15-37); Albumin 4.1 g/dL (3.4-5.0); Alkaline Phosphatase 132 U/L (46-116); Anion Gap 11.8 mmol/L (3-11); BUN 16 mg/dL (7-18); Bilirubin, Total 0.3 mg/dL (0.2-1.0); CO2 23.2 mmol/L (21.0-32.0); Calcium 9.0 mg/dL (8.5-10.1); Calculated LDL 111 mg/dL (<100); Chloride 108 mmol/L (98-107); Cholesterol 183 mg/dL (<200); Estimated GFR 90.90 (mL/min/1.73m2); Glucose 104 mg/dL (74-106); HDL Cholesterol 32 mg/dL (>or=40); Potassium 4.1 mmol/L (3.5-5.1); Sodium 143 mmol/L (136-145); Total Protein 6.4 g/dL (6.4-8.2); Triglyceride 204 mg/dL (<150); Vitamin D 25 Total 36 ng/mL (30-100)
[2025-03-01 10:18] LABS: Hepatitis C Ab w Rflx HCV PCR Negative (Negative)
== END 2025-02-27 13:37 | disposition home or self-care (01) ==
LOC: NCHCN 13:36
PROVIDERS: PCP Physician Assistant Medical; Visit Provider Physician Assistant Medical
DX: E55.9 Vitamin D deficiency, unspecified (principal); R74.8 Abnormal levels of other serum enzymes; E66.9 Obesity, unspecified
CPT/HCPCS: 80053; 80061; 82306; 85027; 86803; 83036

== ENCOUNTER → 2025-03-14 00:47 | Outpatient (CLI) | payer MEDICAID, SELFPAY ==
--- NOTE | 2025-03-14 | DI.US_ITS ---
Exam(s) US ABDOMEN LIMITED EXAM: US ABDOMEN LIMITED CLINICAL HISTORY: ELEVATED LIVER ENZYMES R74.8 ABNL LEVELS OTHER SERUM ENZYMES TECHNIQUE: Ultrasound abdomen performed using standard protocol. COMPARISON: No exams were available for comparison FINDINGS: There is no ascites evident. LIVER: Liver is hyperechoic indicating fatty parenchymal change. There no discrete focal hepatic lesions evident. GALLBLADDER/BILIARY: There are no gallstones. No gallbladder wall edema nor pericholecystic fluid. The common hepatic duct isnot dilated, measuring 2.5mm at the level of mojgan hepatis. PANCREAS: There is no evidence of pancreatic mass nor dilatation of the pancreatic duct. RIGHT KIDNEY:No evidence of solid mass, calculus, nor hydronephrosis. No cortical cysts evident. IMPRESSION: 1. No evidence of cholelithiasis nor dilatation of the biliary tree. 2. Hepatic steatosis noted. There are no discrete focal hepatic lesions evident. 3. No other significant right upper quadrant ultrasound findings and there is no ascites DATA REPOSITORY:
== END ==
LOC: DI 00:47
PROVIDERS: PCP Physician Assistant Medical; Visit Provider Physician Assistant Medical
DX: R74.8 Abnormal levels of other serum enzymes (principal); K76.0 Fatty (change of) liver, not elsewhere classified
CPT/HCPCS: 76705

== ENCOUNTER 2025-04-19 12:57 | Emergency (ER) | payer MEDICAID, SELFPAY ==
[2025-04-19 13:04] VITALS: BP 139/92; PULSE 126; RESP 20; TEMP 37.8; O2SAT 95
--- NOTE | 2025-04-19 14:41 | W.ED.GENAD ---
Discharge Plan Disposition Patient Disposition: Home Condition: Good Discharge Details Clinical Impression: Auditory hallucination Primary Care Provider: El Cope ED Provider: Tyree Grove Home Meds and New Rx's Prescriptions: New olanzapine [Zyprexa] 5 mg tablet 5 mg PO DAILY Qty: 10 0RF No Action escitalopram oxalate [Lexapro] 20 mg tablet 20 mg PO DAILY fluoxetine 40 mg capsule 60 mg PO DAILY topiramate 25 mg tablet 75 mg PO BID naproxen 500 mg tablet 500 mg PO DAILY Patient Comments: TAKE 1 TABLET BY MOUTH TWICE DAILY lisinopril 5 mg tablet 5 mg PO DAILY Patient Comments: TAKE 1 TABLET BY MOUTH EVERY DAY metformin 500 mg tablet extended release 24 hr 500 mg PO DAILY Patient Comments: TAKE 1 TABLET BY MOUTH EVERY DAY bupropion HCl [Wellbutrin SR] 150 mg Tablet Sustained-Release 12 Hr 150 mg PO BID olanzapine [Zyprexa] 5 mg Tablet 10 mg PO BID hydroxyzine HCl 50 mg Tablet 50 mg PO BID PRN PRN Patient Comments: pt unsure of medication Rx Instructions: 1/2 to 1 tab BID PRN cholecalciferol (vitamin D3) [Vitamin D3] 25 mcg (1,000 unit) Capsule 50 mcg PO DAILY omeprazole 20 mg capsule,delayed release(DR/EC) 20 mg PO DAILY Patient Comments: TAKE 1 CAPSULE BY MOUTH DAILY acetaminophen 500 mg tablet 1,000 mg PO TID Qty: 90 0RF ibuprofen 600 mg tablet 600 mg PO TID PRN (Reason: pain) Qty: 90 0RF Discharge Instructions Additional Instructions: Please take the 5 mg Zyprexa daily until you are able to follow-up with your psychiatrist. The prescription has been sent to your pharmacy. Please abide by the safety plan that you have committed to. If you notice any worsening of your symptoms, or any new symptoms such as vomiting, diarrhea, fever, chills, shortness of breath, chest pain, numbness, weakness, or fainting , please return immediately to the emergency department for reevaluation. Please follow up with your primary care provider as soon as possible for reassessment and reevaluation. As always, it was a pleasure participating in your medical care today. Stand Alone Forms: Portal Information Referrals: Minda Gibson MD [ [facility] STAFF PHYSICIAN, Medicine] El Cope PA [Primary Care Provider, Medicine] HPI General Date/Time Provider Initiated Documentation: 04/19/25 13:09. HPI Narrative: 34-year-old male with a past medical history of ADHD, PTSD, GERD, obstructive sleep apnea, asthma, depression, previous history of psychosis, schizophrenia with a history of auditory visual hallucinations presents today for mental health evaluation. Patient and family who is at bedside state that for the last few weeks the patient has been having auditory hallucinations with some visual hallucinations as well. Patient has been off of his olanzapine for the last 2 years after he was titrated off of this by psychiatrist. Patient had a crisis evaluation today, and had this felt to be having increased auditory visual hallucinations, and there was concern because of this. He denies any homicidal or suicidal ideations though. Safety plan was created with his mental health team, and he was subsequently scheduled for further outpatient evaluation including a counselor tomorrow and psychiatry next week. However family after discussion with the therapist was under the impression that there was a recommendation to come to the ER to be started on psychiatric medications per the recommendations of Dr. Gibson. Patient and family have no other complaints at this time. Related Data Home Medications ?Medication ?Instructions ?Recorded ?Confirmed bupropion HCl 150 mg tablet,12 hr 150 mg PO BID 07/12/20 04/19/25 sustained-release (Wellbutrin SR) cholecalciferol (vitamin D3) 25 50 mcg PO DAILY 07/12/20 04/19/25 mcg (1,000 unit) capsule (Vitamin D3) hydroxyzine HCl 50 mg tablet 50 mg PO BID PRN PRN 07/12/20 04/19/25 olanzapine 5 mg tablet (Zyprexa) 10 mg PO BID 07/12/20 04/19/25 Held on 04/19/25. Instructions: Changed by Provider omeprazole 20 mg capsule,delayed 20 mg PO DAILY 01/18/21 04/19/25 release fluoxetine 40 mg capsule 60 mg PO DAILY 06/20/21 04/19/25 topiramate 25 mg tablet 75 mg PO BID 06/20/21 04/19/25 acetaminophen 500 mg tablet 1,000 mg (2 x 500 mg) PO TID #90 07/31/21 04/19/25 tabs ibuprofen 600 mg tablet 600 mg PO TID PRN pain #90 tabs 07/31/21 04/19/25 naproxen 500 mg tablet 500 mg PO DAILY 01/13/22 04/19/25 escitalopram oxalate 20 mg tablet 20 mg PO DAILY 07/28/23 04/19/25 (Lexapro) lisinopril 5 mg tablet 5 mg PO DAILY 04/19/25 04/19/25 metformin 500 mg tablet,extended 500 mg PO DAILY 04/19/25 04/19/25 release 24 hr olanzapine 5 mg tablet (Zyprexa) 5 mg PO DAILY #10 tabs 04/19/25 Previous Rx's ?Medication ?Instructions ?Recorded acetaminophen 500 mg tablet 1,000 mg (2 x 500 mg) PO TID #90 07/31/21 tabs ibuprofen 600 mg tablet 600 mg PO TID PRN pain #90 tabs 07/31/21 olanzapine 5 mg tablet (Zyprexa) 5 mg PO DAILY #10 tabs 04/19/25 Allergies Allergy/AdvReac Type Severity Reaction Status Date / Time erythromycin base AdvReac Mild Skin Rash Unverified 04/19/25 13:09 plastics AdvReac Mild Skin Rash Uncoded 04/19/25 13:09 General Stated Complaint: PsychEval MILLER: 2 Exam Narrative Exam Narrative: 1.Const: Well-nourished, Well-developed, appearing stated age 2.Eyes: PERRL, no conjunctival injection, and symmetrical lids. 3.ENT: Atraumatic external nose and ears. Moist MM. Neck: Symmetric, trachea midline, No thyromegaly. 4.CVS: +S1/S2, Peripheral pulses 2+ and equal in all extremities. Brisk capillary refill in all extremities. 5.RESP: Unlabored respiratory effort. Clear to auscultation bilaterally. No wheezes rales or rhonchi 6.GI: Soft, Nontender/Nondistended, No hepatosplenomegaly. No guarding or rebound. 7.MSK: Normocephalic/Atraumatic, Extremities w/o deformity or ttp No cyanosis or clubbing, Normal movement of all extremities 8.Skin: Warm, Dry. No rashes or lesions. 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 Sensation grossly intact, no focal neurologic deficits. 10.Psych: (AAO) x3. Somewhat of a flat affect. Course Vital Signs Vital signs: Vital Signs Temperature 37.8 C H 04/19/25 13:04 Pulse 126 H 04/19/25 13:04 Respiratory Rate 20 04/19/25 13:04 Blood Pressure 139/92 H 04/19/25 13:04 Pulse Oximetry 95 04/19/25 13:04 Temperature 37.8 C H 04/19/25 13:04 Pulse 126 H 04/19/25 13:04 Respiratory Rate 20 04/19/25 13:04 Blood Pressure 139/92 H 04/19/25 13:04 Blood Pressure Position Sitting 04/19/25 13:04 Pulse Oximetry 95 04/19/25 13:04 Oxygen Delivery Method Room Air 04/19/25 13:04 Oxygen Flow Rate 0 04/19/25 13:04 Medical Decision Making 34-year-old male with a past medical history of ADHD, PTSD, GERD, obstructive sleep apnea, asthma, depression, previous history of psychosis, schizophrenia with a history of auditory visual hallucinations presents today for mental health evaluation. Patient and family who is at bedside state that for the last few weeks the patient has been having auditory hallucinations with some visual hallucinations as well. Patient has been off of his olanzapine for the last 2 years after he was titrated off of this by psychiatrist. Patient had a crisis evaluation today, and had this felt to be having increased auditory visual hallucinations, and there was concern because of this. He denies any homicidal or suicidal ideations though. Safety plan was created with his mental health team, and he was subsequently scheduled for further outpatient evaluation including a counselor tomorrow and psychiatry next week. However family after discussion with the therapist was under the impression that there was a recommendation to come to the ER to be started on psychiatric medications per the recommendations of Dr. Gibson. Patient and family have no other complaints at this time. Exam demonstrates stable male, flat affect. No reported homicidal or suicidal ideations. Plan is certainly atypical from the normal status quo from our mental health colleagues. I did reach out to [facility] crisis team, and they were aware of the safety plan but not aware of the recommendations for the ED visitation. I did contact Dr. Gibson of psychiatry, and she was also not aware of this plan. However as the patient is with this currently and the patient is also experiencing auditory and visual hallucinations, we discussed a plan together, and at this time we do feel that it is reasonable to start the patient on 5 mg of Zyprexa daily. Will give a dose here, and a prescription for home. Patient has a scheduled follow-up with psychiatry next week. And will do that. Dr. Gibson is in agreement with plan. Discussed this with family and they agree with the plan. I have extensively reviewed the treatment plan and discharge instructions with the patient and their family. I have addressed all patient concerns at this time. The patient and family was made aware of what symptoms to monitor for that would warrant a return to the emergency department. Discussed the plan with the patient and family, they demonstrate verbal understanding and agreement with our assessment and plan at this time. The documentation in this chart was dictated using Melty dictation software. Please excuse any dictation errors. PFSH All Active Problems (Updated 04/19/25 @ 14:56 by Tyree Grove DO) Auditory hallucination (Acute) Ganglion cyst of dorsum of right wrist (Acute) S/P Excision: 07/31/3021 Morbid obesity (Acute) ADHD (Acute) PTSD (post-traumatic stress disorder) (Acute) GERD (gastroesophageal reflux disease) (Chronic) FROILAN (obstructive sleep apnea) (Chronic) Periodic limb movement disorder (Acute) Psychosis, transient (Acute) Marijuana intoxication (Acute) Anxiety (Chronic) Depression (Chronic) Asthma (Chronic) Medical History Pes planus Plantar fasciitis of left foot Surgical History No significant past surgical history Social History Smoking/Tobacco Use Status: Former Tobacco Use Quit Date: 05/11/19 Smoking risk assessment performed?: Yes Alcohol Intake: current Alcohol Intake frequency: holidays/special occasions only Alcohol type: hard liquor Drug use: Occasionally Substance use type: marijuana Do you feel safe at home: Yes Additional Social history: Unable to assess privately
[2025-04-19] MEDS: OLANZapine 5 MG TAB PO (15:04)
== END 2025-04-19 15:09 | disposition home or self-care (01) ==
PROVIDERS: Emergency Provider Student in an Organized Health Care Education/Training Program; PCP Physician Assistant Medical
DX: R44.0 Auditory hallucinations (principal); F32.A Depression, unspecified; F20.9 Schizophrenia, unspecified; F43.10 Post-traumatic stress disorder, unspecified
CPT/HCPCS: 99284; 99283

== ENCOUNTER 2025-04-20 11:26 | Emergency (ER) | payer MEDICAID, SELFPAY ==
[2025-04-20] VITALS (42 sets, daily range): BP systolic 128–175; BP diastolic 75–114; PULSE 98–133; RESP 12–30; TEMP 36.3–37.6; O2SAT 9–100
--- NOTE | 2025-04-20 11:15 | RT.EKG_ITS ---
APPROVED REPORT Exam: Resting ECG Reason for Exam: HR 127 on arrival Patient Location: E HR:123 bpm ECG Measurements Heart Rate 123 AXIS [place] [id number] P [id number] QRSd 73 QRS 25 QT 314 T -4 QTc 449 Conclusion Atrial fibrillation vs sinus tachycardia with baseline artifact, no A fib hx, prior EKG sinus Rate 123 No interval abnormalities No STEMI
--- NOTE | 2025-04-20 11:43 | W.ED.GENAD ---
Discharge Plan Discharge Details Chief Complaint: PsychEval Primary Care Provider: [facility] Provider: Tyree Bullock Home Meds and New Rx's Prescriptions: No Action escitalopram oxalate [Lexapro] 20 mg tablet 20 mg PO DAILY naproxen 500 mg tablet 500 mg PO DAILY Patient Comments: TAKE 1 TABLET BY MOUTH TWICE DAILY lisinopril 5 mg tablet 5 mg PO DAILY Patient Comments: TAKE 1 TABLET BY MOUTH EVERY DAY metformin 500 mg tablet extended release 24 hr 500 mg PO DAILY Patient Comments: TAKE 1 TABLET BY MOUTH EVERY DAY olanzapine [Zyprexa] 5 mg tablet 5 mg PO DAILY Qty: 10 0RF bupropion HCl [Wellbutrin SR] 150 mg Tablet Sustained-Release 12 Hr 150 mg PO BID olanzapine [Zyprexa] 5 mg Tablet 5 mg PO BID omeprazole 20 mg capsule,delayed release(DR/EC) 20 mg PO DAILY Patient Comments: TAKE 1 CAPSULE BY MOUTH DAILY topiramate 100 mg tablet 100 mg PO BID Patient Comments: TAKE 1 TABLET BY MOUTH EVERY MORNING AND 2 TABLETS AT BEDTIME HPI General Date/Time Provider Initiated Documentation: 04/20/25 11:27. HPI Narrative: 34 year-old male presents to ED today by EMS with a chief complaint of report of auditory hallucinations, has been displaying highly dangeorus behaviors lately- shooting guns out of windows, playing with machetes at his home in [place], [place] with his family being afraid of this with onset insidiously. Quality described as auditory hallucinations giving him commands, someone elses voice, at least twice a day- told him to shoot holes in a wall of his room, no radiation to desire to hurt himself or others, denies visual hallucinations, denies substances use, denies physical complaints like chest pain/SOB/nausea/vomiting. Severity is described as unable to quanitfy. Palliating factors include nothing attempted- family is locking up the firearms and sharps. Provoking factors include patient was taken off or stopped his olanzapine. Patient not anticoagulated. Related Data Home Medications ?Medication ?Instructions ?Recorded ?Confirmed bupropion HCl 150 mg tablet,12 hr 150 mg PO BID 07/12/20 04/20/25 sustained-release (Wellbutrin SR) olanzapine 5 mg tablet (Zyprexa) 5 mg PO BID 07/12/20 04/20/25 omeprazole 20 mg capsule,delayed 20 mg PO DAILY 01/18/21 04/20/25 release naproxen 500 mg tablet 500 mg PO DAILY 01/13/22 04/20/25 escitalopram oxalate 20 mg tablet 20 mg PO DAILY 07/28/23 04/20/25 (Lexapro) lisinopril 5 mg tablet 5 mg PO DAILY 04/19/25 04/20/25 metformin 500 mg tablet,extended 500 mg PO DAILY 04/19/25 04/20/25 release 24 hr olanzapine 5 mg tablet (Zyprexa) 5 mg PO DAILY #10 tabs 04/19/25 04/20/25 topiramate 100 mg tablet 100 mg PO BID 04/20/25 04/20/25 Previous Rx's ?Medication ?Instructions ?Recorded olanzapine 5 mg tablet (Zyprexa) 5 mg PO DAILY #10 tabs 04/19/25 Allergies Allergy/AdvReac Type Severity Reaction Status Date / Time erythromycin base AdvReac Mild Skin Rash Unverified 04/20/25 11:29 plastics AdvReac Mild Skin Rash Uncoded 04/20/25 11:29 General Stated Complaint: PsychEval MILLER: 2 Review of Systems All systems reviewed & are unremarkable except as noted in HPI and below Exam Narrative Exam Narrative: GENERAL APPEARANCE: Well-nourished, non-toxic, awake and alert, atraumatic, mild acute distress. SKIN: Warm, pink, dry, intact, without rashes/lesions/ulcerations. HEAD: Normocephalic, atraumatic, normal hair distribution for gender/age. EYES: Normal conjunctiva, no exudates on lids/lashes. ENT: Nares patent, no circumoral cyanosis, no facial swelling NECK: Supple, trachea midline, painless cervical ROM. LUNGS/CHEST: Non-labored respirations, normal A/P diameter, symmetrical expansion, no chest wall deformity HEART (CV/PV): No peripheral edema, no JVD. ABDOMEN: Soft, non-distended, no guarding. MSK: Normal ROM, no swelling/deformity to bilateral UEs or LEs, moving all extremities without weakness, no cyanosis, spine midline without tenderness, normal curvature. NEURO: Mental Status AAOx4 - alert to person, place, time, events - lucid and calm No facial droop, no forehead involvement. Motor: No focal weakness - strength 5/5 in bilateral UEs and LEs, proximal and distal, symmetric. Sensory: sensation intact to light touch globally. Gait normal: patient ambulated without ataxia into ED room. PSYCH: dysthymic, cooperative, pleasant, appropriate speech- no word salad or stream of consciousness, idenitifies he needs help- denies SI/HI Course Vital Signs Vital signs: Vital Signs Temperature 37.6 C 04/20/25 11: Pulse 127 H 04/20/25 11:25 Blood Pressure 157/93 H 04/20/25 11:25 Pulse Oximetry 9 L 04/20/25 11:25 Temperature 37.6 C 04/20/25 11: Temperature Source Oral 04/20/25 11: Pulse 127 H 04/20/25 11:25 Blood Pressure 157/93 H 04/20/25 11:25 Pulse Oximetry 9 L 04/20/25 11:25 Medical Decision Making This dictation utilizes [id number] dictation software and may contain unedited grammatical errors. 34 year-old male presents to ED today by EMS with a chief complaint of report of auditory hallucinations, has been displaying highly dangeorus behaviors lately- shooting guns out of windows, playing with machetes at his home in [place], [place] with his family being afraid of this with onset insidiously. Quality described as auditory hallucinations giving him commands, someone elses voice, at least twice a day- told him to shoot holes in a wall of his room, no radiation to desire to hurt himself or others, denies visual hallucinations, denies substances use, denies physical complaints like chest pain/SOB/nausea/vomiting. Severity is described as unable to quanitfy. Palliating factors include nothing attempted- family is locking up the firearms and sharps. Provoking factors include patient was taken off or stopped his olanzapine. Patients' medical history: PTSD, obesity, GERD, FROILAN, psychosis, marijuana use, anxiety, depression, asthma. Family and social history: Lives at home with his sister and nephew. Pertinent exam findings / vital signs include benign cardiopulmonary status, patient is coherent and polite, in observation status appear to be responding to internal stimuli. Differential / pathologies of concern include psychosis, hallucinations. Diagnostic studies of: - Basic labs ordered for admission and inpatient mental health treatment facility. - Patient has elevated WBCs at 16.2 with possible left shift, absolute neutrophil count elevated - nonspecific, adding lactate - CMP shows mildly elevated AST of 44, ALT of 100, no electrolyte abnormalities - TSH within normal limits - UDS negative - Urinalysis negative - EKG shows likely sinus tach at 123 bpm with P waves followed by narrow complex QRS with normal axis, no ST depressions or reciprocal elevations, does have inverted T waves in V3 V4 as well as aVF and lead III - APAP/Salicylate, ETOH level pending at sign-out Added lactate, XR Chest for leukocytosis with left shift. Interventions of: - Telepsych, [facility] evaluated the patient and he is voluntary and agrees for treatment currently but if he does attempt to leave they will immediately follow an EE. Telepsych pending, home medications ordered, patient signed out to oncoming provider. Disposition of Psychosis Patient verbalized understanding of the plan and return to ED criteria and engaged in shared decision making. Medical Records Medical records reviewed: Yes I reviewed the patient's medical records. Lab Data Lab results reviewed: Yes I reviewed the patient's lab results. Labs: Laboratory Tests Range/Units 04/20/25 04/20/25 11:33 11:55 WBC (4.4-10.8) 10^3/uL 16.22 H RBC (4.36-5.78) 10^6/uL 5.42 Hgb (13.5-17.5) g/dL 15.7 Hct (40.0-50.0) % 47.8 MCV (80-95) fL 88 MCH (27.0-33.0) pg 29.0 MCHC (32.0-36.0) % 32.8 RDW (11.8-14.1) % 13.2 Plt Count (130-400) 10^3/uL 366 MPV (8.0-11.0) fL 9.7 Immature Gran % % 1.0 Neutrophils % % 72.5 Lymphocytes % % 15.5 Monocytes % % 9.1 Eosinophils % % 1.0 Basophils % % 0.9 Nucleated RBC % (0.0-0.3) % 0.0 Absolute Neutrophils (1.2-6.7) 10^3/uL 11.76 H Absolute Lymphocytes (1.2-3.4) 10^3/uL 2.51 Absolute Monocytes (0.1-0.8) 10^3/uL 1.48 H Absolute Eosinophils (0.0-0.7) 10^3/uL 0.16 Absolute Basophils (0.0-0.2) 10^3/uL 0.15 Sodium (136-145) mmol/L 143 Potassium (3.5-5.1) mmol/L 4.0 Chloride (98-107) mmol/L 110 H Carbon Dioxide (20.0-31.0) mmol/L 25.8 Anion Gap (3-11) mmol/L 7.2 BUN (9-23) mg/dL 13 Creatinine (0.73-1.18) mg/dL 1.08 Est GFR (CKD-EPI 2020) (mL/min/1.73m2) 78.43 Glucose (74-106) mg/dL 102 Calcium (8.3-10.6) mg/dL 9.5 Total Bilirubin (0.2-1.2) mg/dL 0.5 AST (<34) U/L 44 H ALT (10-49) U/L 100 H Alkaline Phosphatase (46-116) U/L 148 H Total Protein (5.7-8.2) g/dL 7.2 Albumin (3.2-5.0) g/dL 4.9 TSH (0.55-4.78) uIU/mL 1.52 Urine Color (Yellow) Yellow Urine Clarity (Clear) Clear Urine pH (5-8) 7.0 Ur Specific [place] (1.005-1.025) 1.015 Urine Protein (Neg-Trace) mg/dL Trace Urine Ketones (Negative) mg/dL Negative Urine Blood (Negative) Negative Urine Nitrite (Negative) Negative Urine Bilirubin (Negative) Negative Urine Urobilinogen (Up to 0.2) mg/dL 0.2 Ur Leukocyte Esterase (Negative) Negative Urine Glucose (Negative) mg/dL Negative Urine Opiates Screen (Negative) Negative Urine Methadone Screen (Negative) Negative Ur Barbiturates Screen (Negative) Negative Ur Tricyclics Screen (Negative) Negative Ur Amphetamines Screen (Negative) Negative U Benzodiazepines Scrn (Negative) Negative Urine Cocaine Screen (Negative) Negative U Cannabinoids Screen (Negative) Negative PFSH All Active Problems (Updated 04/19/25 @ 14:56 by Tyree R Perfecto, DO) Auditory hallucination (Acute) Ganglion cyst of dorsum of right wrist (Acute) S/P Excision: 07/31/3021 Morbid obesity (Acute) ADHD (Acute) PTSD (post-traumatic stress disorder) (Acute) GERD (gastroesophageal reflux disease) (Chronic) FROILAN (obstructive sleep apnea) (Chronic) Periodic limb movement disorder (Acute) Psychosis, transient (Acute) Marijuana intoxication (Acute) Anxiety (Chronic) Depression (Chronic) Asthma (Chronic) Medical History Pes planus Plantar fasciitis of left foot Surgical History No significant past surgical history Social History Smoking/Tobacco Use Status: Former Tobacco Use Quit Date: 05/11/19 Smoking risk assessment performed?: Yes Alcohol Intake: current Alcohol Intake frequency: holidays/special occasions only Alcohol type: hard liquor Drug use: Never Substance use type: does not use Do you feel safe at home: Yes Additional Social history: Unable to assess privately
--- NOTE | 2025-04-20 11:46 | CMSP_ITS ---
Date of service: 04/20/25 Time of Service: 11:46 Care Management Safety Plan Status Status: Voluntary Reason for Wait Reason for Wait: Inpatient Admission Safety Plan Safety Plan: VOLUNTARY FOR INPATIENT PSYCHIATRIC STABILIZATION. Patient is appropriate in all interactions since arriving at [facility]; Pt has demonstrated appropriate coping and communication skills, has articulated his or her needs and concerns and is fully engaged during staff interactions. Safety plan has been established with patient, and care team, to adhere to patient goals, identify restrictions based on behavioral status, address nutrition, and determine allowed personal belongings, tools for hygiene and personal care. Determine level of activity including ambulation, level of supervision, visitors, and determine privileges based on behaviors and level of engagement by pt. VOLUNTARY SAFETY PLAN: 1. Will remain on suicide precautions, in paper clothes. 2. Will remain in Zone B under direct supervision of one-on-one staff at all times provided by [employer]; BRADLEY, CONCRETE POINTER staying machine operator. 3. May have paper cups, plates, finger foods as well as a cardboard spoon with which to eat meals. 4. Follow [facility] Management of the Admitted Behavioral Health Patient policy. 5. Shower available in Zone B without restriction. 6. Personal belongings-soft items permitted at RN discretion. 7. Visitors- none at this time. 8. Activities: soft cart items approved per RN discretion. 9. Bathroom available in Zone B without restriction. 10. Phone: limited to school counsellor on [facility] cordless phone at RN discretion. Due to VOLUNTARY status, if patient wishes to leave [facility], staff will contact [facility] Crisis Screener ([phone]) and Press Machine Operator ([phone]) as soon as possible. In the event of elopement, notify [facility] Police ([phone]). Patient is currently voluntarily at [facility] and seeking inpatient admission when a bed becomes available. [facility] Frontline Energy Efficient Site Manager will continue seeking placement. Please contact the Press Machine Operator ([phone]) and [facility] Energy Efficient Site Manager ([phone]) for any needed changes in the Safety Plan. Safety plan has been provided to interdepartmental care team.
--- NOTE | 2025-04-20 11:46 | PDOC.CMSAFE ---
Date of service: 04/20/25 Time of Service: 11:46 Care Management Safety Plan Status Status: Voluntary Reason for Wait Reason for Wait: Inpatient Admission Safety Plan Safety Plan: VOLUNTARY FOR INPATIENT PSYCHIATRIC STABILIZATION. Patient is appropriate in all interactions since arriving at [facility]; Pt has demonstrated appropriate coping and communication skills, has articulated his or her needs and concerns and is fully engaged during staff interactions. Safety plan has been established with patient, and care team, to adhere to patient goals, identify restrictions based on behavioral status, address nutrition, and determine allowed personal belongings, tools for hygiene and personal care. Determine level of activity including ambulation, level of supervision, visitors, and determine privileges based on behaviors and level of engagement by pt. VOLUNTARY SAFETY PLAN: 1. Will remain on suicide precautions, in paper clothes. 2. Will remain in Zone B under direct supervision of one-on-one staff at all times provided by [employer]; BRADLEY, MOLD PRESSER straight ruling machine operator. 3. May have paper cups, plates, finger foods as well as a cardboard spoon with which to eat meals. 4. Follow [facility] Management of the Admitted Behavioral Health Patient policy. 5. Shower available in Zone B without restriction. 6. Personal belongings-soft items permitted at RN discretion. 7. Visitors- none at this time. 8. Activities: soft cart items approved per RN discretion. 9. Bathroom available in Zone B without restriction. 10. Phone: limited to legal biller on [facility] cordless phone at RN discretion. Due to VOLUNTARY status, if patient wishes to leave [facility], staff will contact [facility] Crisis Screener ([phone]) and Material Handling Warehouse Supervisor ([phone]) as soon as possible. In the event of elopement, notify [facility] Police ([phone]). Patient is currently voluntarily at [facility] and seeking inpatient admission when a bed becomes available. [facility] Frontline Blast Furnace Keeper Helper will continue seeking placement. Please contact the Material Handling Warehouse Supervisor ([phone]) and [facility] Blast Furnace Keeper Helper ([phone]) for any needed changes in the Safety Plan. Safety plan has been provided to interdepartmental care team.
--- NOTE | 2025-04-20 11:47 | CMPROGNOTE_ITS ---
Date of service: 04/20/25 Time of Service: 11:47 Care Management Progress Note Progress Note Text Progress Note Text: CM met with [facility] clinician Michela, the [facility] RN, [facility] INTERNET SOURCER, and the senior warehouse clerk to review Oleg?s plan of care. Oleg was lying in bed during the discussion. A psychiatric consult has been ordered. Per RN, he has been responding to internal stimuli.[facility] reports that Oleg is agreeable to inpatient treatment and will remain voluntary unless he chooses to leave, at which point the EE process would be initiated, as this patient meets criteria for EE. They also noted that his family has historically been resistant to his receiving care, which is the basis for the current visitation and phone restrictions. [facility] indicated that referrals for inpatient placement will be submitted later today. They also confirmed that Oleg is currently connected with [facility] for therapy and additional supportive services. Safety plan in place. CM will continue to follow. Status Status: Voluntary Social Determinants of Health Screening Will the Patient Participate in the Screening?: Unable to obtain
[2025-04-20 12:08] LABS: Abs Immature Grans 0.16 10^3/uL (0.0-0.06); HCT 47.8 % (40.0-50.0); HGB 15.7 g/dL (13.5-17.5); Immature Grans % 1.0 %; MCH 29.0 pg (27.0-33.0); MCHC 32.8 % (32.0-36.0); MCV 88 fL (80-95); MPV 9.7 fL (8.0-11.0); Platelet Count 366 10^3/uL (130-400); RBC 5.42 10^6/uL (4.36-5.78); RDW 13.2 % (11.8-14.1); RDW-SD 42.2 fL; WBC 16.22 10^3/uL (4.4-10.8)
[2025-04-20 12:12] LABS: Glucose Negative (Negative)
[2025-04-20 12:22] LABS: ALT 100 U/L (10-49); AST 44 U/L (<34); Albumin 4.9 g/dL (3.2-5.0); Alkaline Phosphatase 148 U/L (46-116); Anion Gap 7.2 mmol/L (3-11); BUN 13 mg/dL (9-23); Bilirubin, Total 0.5 mg/dL (0.2-1.2); CO2 25.8 mmol/L (20.0-31.0); Calcium 9.5 mg/dL (8.3-10.6); Chloride 110 mmol/L (98-107); Glucose 102 mg/dL (74-106); Potassium 4.0 mmol/L (3.5-5.1); Sodium 143 mmol/L (136-145); Total Protein 7.2 g/dL (5.7-8.2)
[2025-04-20 12:24] LABS: TSH (W/Ref FT4) 1.52 uIU/mL (0.55-4.78)
[2025-04-20 14:36] LABS: Cannabinoids THC Negative (Negative)
[2025-04-20] MEDS: Escitalopram 20 MG TAB PO (15:40)
[2025-04-20] MEDS: OLANZapine 5 MG TAB PO ×2 (15:40→19:54)
[2025-04-20] MEDS: buPROPion-CR 150 MG TABCR PO ×2 (15:40→19:54)
--- NOTE | 2025-04-20 15:53 | DI.RAD_ITS ---
Exam(s) XR CHEST 2V PA LATERAL EXAM: XR CHEST 2V PA LATERAL CLINICAL HISTORY: PNA ruleout TECHNIQUE: 2D digital imaging was performed. Two views. COMPARISON: No exams were available for comparison FINDINGS: HEART: Normal size. Aorta: Not dilated. PULMONARY VASCULATURE: Normal. MEDIASTINUM: Unremarkable. LUNGS: The lungs are suboptimally inflated on the lateral view but appear clear. PLEURAL SPACE: No pleural effusion or pneumothorax. BONE:Unremarkable for age. SOFT TISSUES: Unremarkable. IMPRESSION: No acute abnormality. DATA REPOSITORY: RADIATION DOSE DELIVERED:
[2025-04-20 16:25] LABS: COVID-19 PCR Negative (Negative); RSV PCR Negative (Negative)
[2025-04-20 17:02] LABS: Acetaminophen < 2 ug/mL (10-20); Salicylate < 3.0 mg/dL (<30.0)
[2025-04-20] MEDS: Doxycycline Hyclate 100 MG CAP PO (17:03)
[2025-04-20] MEDS: Acetaminophen 325 MG TAB 650 MG PO (17:03)
--- NOTE | 2025-04-20 18:40 | PDOC.MHCN ---
Date of service: 04/20/25 Time of Service: 13:35 Suicide Severity Rate CSSRS Have you wished you were or wished you could go to sleep and not wake up?: No Have you actually had any thoughts of killing yourself?: No CSSRS2 Have you been thinking about how you might do this?: No Have you had these thoughts and had some intention of acting on them?: No Have you started to work out or worked out the details of how to kill yourself? Do you intend to carry out this plan?: No CSSRS3 Have you ever done anything, started to do anything or prepared to do anything to end your life?: No CSSRS4 Was this within the past three months?: No Screening Score Total Score: 0 Mental Health Emergency Note Release [facility] release signed:: Yes Reason for Visit Auditory hallucinations, dangerous behaviors In the last 2 weeks has the pt presented for ES prior to today?: Yes, presented at [facility], [facility] and Therapist Client Information Client is: Adult Outpatient Well Housed: Yes Non Suicidal Self Injury Current: No History: No CALM/Risk Level Does risk to harm exist?: yes. Access to means: Yes. Types of Means: Firearms, Other weapons and Medication. Details: Client reports access to firearms, ammunition, sharps including long knives/machete, medications. . Risk: High Risk Duty to warn indicated: No Asssessment/Mental Status Appearance: Disheveled and Poor hygiene Attitude: Cooperative, Passive and Friendly Behavior: Unremarkable Speech: Normal and Other (Latency in responses) Affect: Cogruent with mood Mood: Euthymic and Depressed Thought process: Poverty of content Hallucinations: yes, Visual and Auditory Delusions: No evidence Attention: Inattention Perception: Not impaired Orientation: Disoriented in Time Memory: Intact Insight: Good Judgement: Good Neurovegetative Symptoms Sleep: Decrease Appetitie: No change Interests: No change Energy: No change Libido: No change Additional Issues: Assaultive/Threatening Behavior: Yes Medical Concerns: No Client engaged in active self harm w/weapon: No Threatening to run away: No Child reported abuse/neglect: No Voluntarily presenting for services: Yes Domestic violence is a concern: No Extreme Psychosis or extreme behavior is present: Yes Impression Client is a 34-year-old male, currently single and residing with his sister in [place], [place]. He is known to [facility] and is new to this clinician. During the in-person crisis assessment at [facility], the client presented in a disheveled state with poor hygiene, dressed in hospital blue scrubs and yellow grippy socks. Numerous scratches, totaling over thirty, were visible on his hands, wrists, and arms up to the biceps. Client was cooperative yet passive and calm, exhibiting dysthymic demeanor with appropriate speech but showing latency in responses. He maintained good eye contact, though he demonstrated inattention without wandering. His affect was congruent with an euthymic mood, albeit with a poverty of content, as he offered limited information but answered questions appropriately after some latency. Client reported experiencing auditory hallucinations that included both tonal sounds and command voices. He denied any visual hallucinations, yet he was observed interacting with and gesturing towards non-visible individuals in the room. No evidence of delusions was present. Client exhibited disorientation to time and the day of the week but displayed good insight and judgment through his inquiries about receiving help, indicating a need for stabilization, medication, and assistance in managing the voices in his head. His mental health status included disrupted sleep, anxiety, depression, and PTSD symptoms. During the session, he ordered and consumed lunch, which he described as 'parmesan crusted chicken, tomato soup, flan. ' Although the client denied intent or plans to cause harm to others, recent erratic behaviors involving weapons raised concerns about his safety, as previous safety planning actions with family to secure access to means of harm had not been fully realized. Client accepted voluntary placement for inpatient mental health treatment. Plan/Disposition Recommended Disposition: Hospitalization facilities contacted. Plan: Client to await placement for inpatient mental health treatment on a voluntary admission basis. Facilities contacted if Applicable [facility] Not accepted, Other (under review, awaiting medical records for this event.) [facility] Not accepted, Other (under review, awaiting medical records for this event.), [facility] Not accepted, Other (under review, awaiting medical records for this event.) [facility] Not accepted, (under review, awaiting medical records for this event.) Other (under review, awaiting medical records for this event.) [facility] Not accepted, (under review, awaiting medical records for this event.) Other (under review, awaiting medical records for this event.) Reports/communication Outcome discussed with: ED/Personnel
[2025-04-20] MEDS: Normal Saline 1,000 ML 1000 ML IV ×2 (18:44→19:45)
[2025-04-20] MEDS: Topiramate 100 MG TAB 200 MG PO (19:54)
[2025-04-20] MEDS: Ibuprofen 600 MG TAB PO (19:55)
[2025-04-20] MEDS: Omnipaque 350 MG/ML 100 ML BTL IJ (22:04)
[2025-04-20] MEDS: Normal Saline Flush 10 ML SYR IVP (22:05)
[2025-04-20] MEDS: Normal Saline - Diluent 50 ML VIAL IJ (22:05)
--- NOTE | 2025-04-20 22:12 | DI.CT_ITS ---
Exam(s) CT CHEST PE CTA EXAM: CT CHEST PE CTA CLINICAL HISTORY: shortness of breath, tachycardia. TECHNIQUE: Imaging Protocol: Axial CT angiography was performed with multi- slice acquisition and multi-planar reconstructions as well as axial, coronal and sagittal MIP reconstructions. Computer aided detection (CAD) was utilized. CONTRAST MATERIAL: Intravenous: Omnipaque 350 Contrast volume:90 ml COMPARISON: CR XR CHEST 2V PA LATERAL from 04/20/2025 FINDINGS: Exam is limited by patient body habitus, expiratory changes and respiratory motion. Pulmonary Arteries: No evidence of filling defect to suggest pulmonary emboli. Mediastinum and Frida: No dominant adenopathy or fluid collection. Pulmonary parenchyma: No consolidation or dominant measurable mass. Pleura: No effusion or pneumothorax. Heart: The heart is not dilated. No coronary artery calcifications are seen. Aorta: Thoracic aorta non-dilated. No dissection. Upper abdomen: No acute findings. Enlarged fatty liver. Bones: Unremarkable for age. Tubes, Catheters, and Lines: None Soft tissues: Unremarkable. IMPRESSION: No evidence of pulmonary embolism or other acute abnormality. The preliminary [facility] report was reviewed. RADIATION DOSE DELIVERED: 225.81mGy.cm Total DLP DATA REPOSITORY: All CT scans at this facility are submitted to the National Radiology Data Registry (NRDR) Dose Index Registry (DIR) with the [employer] (ACR). RADIATION OPTIMIZATION: All CT scans at this facility use at least one of these dose optimization techniques: automated exposure control; mA and/or kV adjustment per patient size (includes targeted exams where dose is matched to clinical indication); or iterative reconstruction.
--- NOTE | 2025-04-20 22:39 | DI.[facility]_ITS ---
PROCEDURE INFORMATION: Exam: CTA Chest With Contrast Exam date and time: 04/20/2025 9:59 PM Age: 34 years old Clinical indication: Shortness of breath and other: Tachycardia; Shortness of breath, tachycardia TECHNIQUE: Imaging protocol: Computed tomographic angiography of the chest with contrast. Exam focused on the arteries. 3D rendering (Not supervised by radiologist): MIP and/or 3D reconstructed images were created by the technologist. Radiation optimization: All CT scans at this facility use at least one of these dose optimization techniques: automated exposure control; mA and/or kV adjustment per patient size (includes targeted exams where dose is matched to clinical indication); or iterative reconstruction. Contrast material: [id number]; Contrast volume: 90 ml; Contrast route: INTRAVENOUS (IV); COMPARISON: CR XR CHEST 2V PA LATERAL 04/20/2025 3:51 PM FINDINGS: Pulmonary arteries: Normal. No pulmonary emboli. Aorta: Unremarkable. No aortic aneurysm. No aortic dissection. Lungs: Unremarkable. No consolidation. No masses. Pleural spaces: Unremarkable. No pneumothorax. No pleural effusion. Heart: Unremarkable. No cardiomegaly. No pericardial effusion. Lymph nodes: Unremarkable. No enlarged lymph nodes. Liver: Fatty liver. Gallbladder and biliary ducts: Gallbladder contracted. Bones/joints: Unremarkable. No acute fracture. Soft tissues: Unremarkable. Other findings: Respiratory motion noted. IMPRESSION: No evidence for pulmonary embolus. Dictated and Authenticated by: Eloise Wilde MD. Orderin Abe Amato MD
--- NOTE | 2025-04-20 22:40 | W.ED.FU ---
Date of service: 04/20/25 Time of Service: 22:40 Follow Up Plan: Care is excepted from Tyree Bullock PA-C pending voluntary mental health placement for suicidality auditory and visual hallucinations with concerning actions at home with gun use and machete use. Patient reportedly has not been compliant with his meds. Was informed that patient is currently voluntary status however he would likely transition to involuntary status if he did attempt to leave. Patient has not reportedly made any attempt such as this. Patient is reportedly medically clear for assessment. On assumption of care did note that patient was markedly tachycardic in the high 120s and did come in to evaluate the patient. He does have a temp of 99.8 states he is been sick for approximately 5 days with upper respiratory symptoms including cough some intermittent nausea without vomiting. He states his family members are also sick. He states he feels tired but not nauseous right now and denies any headache. He denies any rashes or lesions or attempts to harm himself or overdose on medications. He denies any recent marijuana use or additional illicit substance use. States he has had a cough. He did look at patient's chest x-ray and on the lateral view is concerning for possible infiltrate. He did give him a dose of doxycycline and some Tylenol patient remained tachycardic unfortunately. He was then brought into the main emergency department to give fluids patient received 2 L of NS and actually had improvement of tachycardia initially and then resumed into 115-120's. Then proceeded to order CTA PE which does not show acute abnormality per radiology interpretation my review. I did review patient's prior medical record. I looks like patient does have a history of tachycardia although this is higher than he has been previously and looks like the last time he did have some episodes of tachycardia that was related to marijuana overdose. At this time he is relatively asymptomatic he has a negative CTA PE, he does have leukocytosis and negative lactate I do not see an obvious source of infection although suspect is viral in nature. We will continue to monitor patient at this time. Patient remains comfortable pulse 105-110 not grossly changed from prior. Currently on the phone with telepsychiatry.
--- NOTE | 2025-04-20 23:20 | W.TELEPSYCH ---
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 male with history of PTSD, psychotic disorder, ADHD, anxiety disorder, depressive disorder, suicide attempt(s), poor self-care, no excessive drug/alcohol use, , no history of violent/aggressive behavior, no past psychiatric hospitalizations, for evaluation. Patient presents with significant mood symptoms and psychosis. He has been having auditory hallucinations, command in nature, and responding to those hallucinations often with dangerous behaviors. For instance, he has been using his firearms to shoot holes in the nelson of his room, ostensibly because the voices telling him to. He says he has not had any plan or intent to harm intentionally hurt anyone. When seen he is vague, has difficulty giving me details, seems to be thought blocked or internally focused at times. He admits he has been depressed and stressed by things going on but he really cannot tell me what. He does say he has seasonal pattern and gets more depressed in the wintertime. Patient appears to be depressed, psychotic, and a danger to himself and others. He requires inpatient hospitalization for safety, assessment, and stabilization. He is waiting for voluntary admission. Recommend while in the emergency department increasing his Zyprexa to 10 mg p.o. twice daily. Because patient is at elevated risk of danger to self, patient presently meets criteria for inpatient psychiatric hospitalization. Working Diagnoses (Primary diagnosis first) (F33.3) MDD (major depressive disorder), recurrent, severe, with psychosis (HCC) (F43.10) PTSD (post-traumatic stress disorder) (F90.9) Attention deficit hyperactivity disorder (ADHD), unspecified ADHD type (F41.8) Other specified anxiety disorders CPT Codes: 03230 Plan Disposition: psychiatric admission Admission Type: Voluntary admission when medically stable. Patient understands recommendation for psychiatric admission and consents. Re-consult psychiatry/screening if patient requests discharge. Observation Level: Continue psych 1-to-1 OR Close observation per hospital protocol Pharmacological: - Increase Zyprexa to 10mg BID - Is patient psychotic?: Yes; Were antipsychotic medications started?: Yes - Informed consent: Discussed risks and benefits of the above recommended psychiatric medications with patient, who demonstrated understanding and gave express informed consent to take the above medications as documented. Follow-Up: Q24 Additional Plan Details: Parts of this note were dictated using voice recognition software and may contain small irregularities and grammatical errors which are unintentional If questions arise about the psychiatric care of this patient, please call the [facility] to request a follow-up consult. Please do not contact me individually through the EMR chat as I am not regularly logged on to this system. The clinician for the follow-up visit may be different Discussed plan and recommendations with: Dr Carlson History This evaluation was conducted with the assistance of onsite staff via HIPAA-complaint video telepsychiatry, to which patient consented. Prior to interview, I identified the patient by full name and date of with the assistance of onsite staff. Requested by: N/A Sources of information: Patient, medical record History of Present Illness 34 y.o. male, living with family, single, on disability, with history of PTSD, psychotic disorder, ADHD, anxiety disorder, depressive disorder, suicide attempt(s), poor self-care, no excessive drug/alcohol use, , no history of violent/aggressive behavior, no past psychiatric hospitalizations, for evaluation. Patient presented to the emergency department with a complaint of auditory hallucinations. He apparently has been engaging in dangerous behaviors including shooting guns out of windows, playing with machete's at his home in [facility]. His family is afraid of his behaviors. He says he has auditory hallucinations commanding him and someone else's voice at least twice a day to shoot holes in the nelson of his room. He has no desire to hurt himself or anyone else. He denies visual hallucinations. Family is locking up the firearms and sharp objects. He apparently has not been on his olanzapine. He was seen by social work and appeared disheveled with poor hygiene. Over 30 scratches were visible on his hands, wrist, and arms. He has latent responses and appeared to be dysthymic. He was observed interacting with and gesturing toward individuals who were not in the room. He agreed he needed help for stabilization and managing his hallucinations. Patient was recommended, and willing, to be voluntarily admitted to inpatient psychiatry. . On psychiatric evaluation, patient is reliable, disorganized, cooperative, alert, forthcoming, unable to give clear history, . He says he has been hearting voices. He says he has been hearing voices a while. I asked how long quite a while. He says he has depression, ADHD and anxiety. He says the voices are from a mental breakdown and stuff. He says not really a mental breakdown, a psychotic episode or whatever, kind of. He says started about 14 days ago. Unsure why. He says he has had episodes before this one, when he smoked cannabis, but says he hasn't smoked in years. He says he has been stressed over the last 2 weeks but has trouble telling me what. Appears thought blocked at times. He says he has been depressed, he gets seasonal depression and it gets worse in the winter. He is distracted, appears internally focused, and asks me to repeat questions, or answers things I didn't ask Topirimate, hydroxyzine, recently started zyprexa Admits to SI but he made a promise to mother, cares about other family and friends, his cat, etc. Psychiatric Review of Symptoms (past two weeks) Positive: depressed mood, insomnia, auditory hallucinations, command hallucinations, anxiety, trouble concentrating Negative (symptoms NOT present): Suicidal ideation in past 2 weeks: active suicidal ideation without plan/intent Psychiatric History Past Psychiatric Diagnosis/Problems: PTSD, psychotic disorder, ADHD, anxiety disorder, depressive disorder Psychiatric Hospitalizations: no past psychiatric hospitalizations Current Psychiatric Treatment: medication management, therapy Past Psychiatric Treatment: medication management Drug/Alcohol Use: none Recent Stressors: exacerbation of mental illness, unable to tell me specifics Past Trauma: unspecified past trauma Family Psychiatric History: unknown Collateral Contacted Contacted: No -- patient meets criteria for inpatient hospitalization Risk History Past suicidality/self-injury: suicidal ideation, suicidal statements/threats, prior suicide attempt(s) over 6 months ago, Attempted 9 years ago hoding a gun katherine his head. Past HI/Violence/Property Destruction: no history of violent/aggressive behavior Access to Firearms: no -- locked firearms from ammo in home Past grave disability/poor self-care: poor self-care Medical History Medical Problems: deemed medically stable, obesity, hypertension, GERD, hyperlipidemia PCP: yes Psychiatric and Other Clinically-Relevant Medications: Olanzapine 5 mg p.o. every morning, topiramate 100 mg twice daily. He says he is on hydroxyzine 50 mg twice daily as needed however this may have been discontinued. He also says he was on fluoxetine 60 mg daily and that also was recently discontinued. He admits that he does not really remember his medications and may be getting the wrong him. He is currently also ordered Wellbutrin SR 150 mg twice daily, Lexapro 20 mg every morning, apparently is ordered olanzapine 5 mg twice daily, topiramate 100 mg p.o. every morning and 200 mg p.o. nightly. Allergies and Adverse Medication Reactions: Erythromycin, plastics Demographics/Social History Gender Identity: male Living Situation: living with family, with sister, her BF and patients nephew Relationship Status: single Social Support Network: Education: high school/GED Employment: on disability, for anxiety and depresison Legal History: none Special Considerations: none Mental Status Exam Appearance and Attire: Normal Psychomotor: No abnormality Behavior and Attitude: Cooperative Speech: Increased latency Mood: Depressed, Dysthymic, Anxious Affect: Constricted Content: Suicidal ideation Perception: Auditory hallucinations Thought Process: Vague, appears either thought blocked or internally focused at times Intelligence: Average Sensorium: Distractible Orientation: Grossly oriented Abstraction: Appropriate Language: No abnormality Memory: Intact Knowledge: Appropriate for education and socioeconomic status Insight: Moderate impairment Judgment: Severe impairment Risk Factors: History of prior suicide attempts; History of prior SI; Mood disorder; Psychotic disorder; ADHD; PTSD; Global insomnia (difficulty falling asleep, maintaining sleep, or falling back to sleep); Command Hallucinations; Protective Factors: identifies reasons for living; future orientation; medication management; therapy; Summary Risk Assessment - Current Suicide Risk Elevated? Per PSS-3: Mild risk - Current Violence Risk Elevated? No - Issues with ability to care for self: No Jeff Durán MD [facility]
--- NOTE | 2025-04-21 09:03 | CMSP_ITS ---
Date of service: 04/21/25 Time of Service: 09:03 Care Management Safety Plan Status Status: Voluntary Reason for Wait Reason for Wait: Inpatient Admission Safety Plan Safety Plan: VOLUNTARY FOR INPATIENT PSYCHIATRIC STABILIZATION. Patient is appropriate in all interactions since arriving at [facility]; Pt has demonstrated appropriate coping and communication skills, has articulated his or her needs and concerns and is fully engaged during staff interactions. Safety plan has been established with patient, and care team, to adhere to patient goals, identify restrictions based on behavioral status, address nutrition, and determine allowed personal belongings, tools for hygiene and personal care. Determine level of activity including ambulation, level of supervision, visitors, and determine privileges based on behaviors and level of engagement by pt. VOLUNTARY SAFETY PLAN: 1. Will remain on suicide precautions, in paper clothes. 2. Will remain in Zone B under direct supervision of one-on-one staff at all times provided by [employer]; BRADLEY, NUTRIENT MANAGEMENT SPECIALIST senior infrastructure engineer. 3. May have paper cups, plates, finger foods as well as a cardboard spoon with which to eat meals. 4. Follow [facility] Management of the Admitted Behavioral Health Patient policy. 5. Shower available in Zone B without restriction. 6. Personal belongings-soft items permitted at RN discretion. 7. Visitors- none at this time. 8. Activities: soft cart items approved per RN discretion. 9. Bathroom available in Zone B without restriction. 10. Phone: limited to criminal legal assistant on [facility] cordless phone at RN discretion. Due to VOLUNTARY status, if patient wishes to leave [facility], staff will contact [facility] Crisis Screener ([phone]) and [facility] ([phone]) as soon as possible. In the event of elopement, notify [facility] Police ([phone]). Patient is currently voluntarily at [facility] and seeking inpatient admission when a bed becomes available. [facility] Frontline Interlocking And Signal Mechanic will continue seeking placement. Please contact the Psychologist Private [facility] ([phone]) and [facility] Interlocking And Signal Mechanic ([phone]) for any needed changes in the Safety Plan. Safety plan has been provided to interdepartmental care team.
--- NOTE | 2025-04-21 09:03 | PDOC.CMSAFE ---
Date of service: 04/21/25 Time of Service: 09:03 Care Management Safety Plan Status Status: Voluntary Reason for Wait Reason for Wait: Inpatient Admission Safety Plan Safety Plan: VOLUNTARY FOR INPATIENT PSYCHIATRIC STABILIZATION. Patient is appropriate in all interactions since arriving at [facility]; Pt has demonstrated appropriate coping and communication skills, has articulated his or her needs and concerns and is fully engaged during staff interactions. Safety plan has been established with patient, and care team, to adhere to patient goals, identify restrictions based on behavioral status, address nutrition, and determine allowed personal belongings, tools for hygiene and personal care. Determine level of activity including ambulation, level of supervision, visitors, and determine privileges based on behaviors and level of engagement by pt. VOLUNTARY SAFETY PLAN: 1. Will remain on suicide precautions, in paper clothes. 2. Will remain in Zone B under direct supervision of one-on-one staff at all times provided by [employer]; BRADLEY, WEIGH MACHINE OPERATOR directory compiler. 3. May have paper cups, plates, finger foods as well as a cardboard spoon with which to eat meals. 4. Follow [facility] Management of the Admitted Behavioral Health Patient policy. 5. Shower available in Zone B without restriction. 6. Personal belongings-soft items permitted at RN discretion. 7. Visitors- none at this time. 8. Activities: soft cart items approved per RN discretion. 9. Bathroom available in Zone B without restriction. 10. Phone: limited to junior paralegal on [facility] cordless phone at RN discretion. Due to VOLUNTARY status, if patient wishes to leave [facility], staff will contact [facility] Crisis Screener ([phone]) and [facility] ([phone]) as soon as possible. In the event of elopement, notify [facility] Police ([phone]). Patient is currently voluntarily at [facility] and seeking inpatient admission when a bed becomes available. [facility] Frontline Chief Supply Chain Officer will continue seeking placement. Please contact the [facility] ([phone]) and [facility] Chief Supply Chain Officer ([phone]) for any needed changes in the Safety Plan. Safety plan has been provided to interdepartmental care team.
[2025-04-21] MEDS: Naproxen 500 MG TAB PO (09:28)
[2025-04-21] MEDS: Topiramate 100 MG TAB PO (09:28)
[2025-04-21] MEDS: Escitalopram 20 MG TAB PO (09:28)
[2025-04-21] MEDS: Lisinopril 5 MG TAB PO (09:28)
[2025-04-21] MEDS: metFORMIN C.R. 500 MG TABCR PO (09:28)
[2025-04-21] MEDS: buPROPion-CR 150 MG TABCR PO (09:29)
[2025-04-21] MEDS: Omeprazole 20 MG CAPCR PO (09:30)
[2025-04-21] MEDS: OLANZapine 5 MG TAB 10 MG PO (09:30)
[2025-04-21 09:47] VITALS: BP 155/101; PULSE 135; RESP 20; TEMP 36.8; O2SAT 96
--- NOTE | 2025-04-21 10:24 | ED.PROG1_ITS ---
Date of service: 04/21/25 Time of Service: 10:24 Psychiatric Border Handoff Update Brief Story: Care was signed out by Dr. Carlson, please see documentation regarding prior ED course. Plan at signout was to await voluntary placement. Patient noted to be medically screened and clear. He has had persistent tachycardia during his visit. Patient did have a significant initial workup including CT of the chest which was negative. Patient has been seen by telepsychiatry who recommended increasing olanzapine dosing to 10 mg. Reviewed labs and patient does have mild transaminitis. This has been present in the past. Acetaminophen level normal. I do not see a prior hepatitis profile performed. We will order acute hepatitis profile to be sent out. I will also add tick panel to be sent out. Received call from Dr. Thomas at [facility], discussed ED presentation and course, he will accept the patient in transfer. Status: voluntary Able to leave: would need physician/CHI and crisis evaluation prior to leaving MDM Shift Events: Patient accepted by Dr. Thomas at [facility]. Medical Concerns: Persistent tachycardia. Tick panel and hepatitis profile pending. Discharge Plan Disposition Patient Disposition: Psychiatric Hospital/Unit Specific Psychiatric Facility: [facility] Condition: Serious Discharge Details Clinical Impression: Psychosis Primary Care Provider: [facility] ED Provider: Andrew Reilly Home Meds and New Rx's Prescriptions: No Action escitalopram oxalate [Lexapro] 20 mg tablet 20 mg PO DAILY naproxen 500 mg tablet 500 mg PO DAILY Patient Comments: TAKE 1 TABLET BY MOUTH TWICE DAILY lisinopril 5 mg tablet 5 mg PO DAILY Patient Comments: TAKE 1 TABLET BY MOUTH EVERY DAY metformin 500 mg tablet extended release 24 hr 500 mg PO DAILY Patient Comments: TAKE 1 TABLET BY MOUTH EVERY DAY olanzapine [Zyprexa] 5 mg tablet 5 mg PO DAILY Qty: 10 0RF bupropion HCl [Wellbutrin SR] 150 mg Tablet Sustained-Release 12 Hr 150 mg PO BID olanzapine [Zyprexa] 5 mg Tablet 5 mg PO BID omeprazole 20 mg capsule,delayed release(DR/EC) 20 mg PO DAILY Patient Comments: TAKE 1 CAPSULE BY MOUTH DAILY topiramate 100 mg tablet 100 mg PO BID Patient Comments: TAKE 1 TABLET BY MOUTH EVERY MORNING AND 2 TABLETS AT BEDTIME Discharge Data Discharge Date/Time-TO BE ENTERED AT DEPARTURE: 04/21/25 14:06
--- NOTE | 2025-04-21 15:55 | CMDISCH_ITS ---
Date of service: 04/21/25 Time of Service: 15:55 Care Management Discharge Plan Reason for Hospitalization: suicidal ideations, hallucinations Discharge Plan: Oleg was transferred today to [facility]. He was transported via [facility] Services Needed at Discharge: Psychiatric Facility MH Services (Omit if N/A) Current MH Services: [facility] Disposition Disposition: [facility] via of: Other ([facility]
[2025-04-21 19:07] LABS: Hepatitis A Antibody IgM Negative (Negative); Hepatitis C Ab w Rflx HCV PCR Negative (Negative)
[2025-04-24 11:07] LABS: Lyme Ab w Rflx to Lyme Confirm Negative (Negative)
[2025-04-24 13:22] LABS: B. miyamotoi PCR Negative (Negative); Babesia divergens/MO-1 Negative (Negative); Ehrlichia muris eauclairensis Negative (Negative)
== END 2025-04-21 14:06 ==
PROVIDERS: Physician Assistant; Emergency Provider Student in an Organized Health Care Education/Training Program; PCP Physician Assistant Medical
DX: F29 Unspecified psychosis not due to a substance or known physiological condition (principal); R44.0 Auditory hallucinations
CPT/HCPCS: 00123; 36415; 71275; 80053; 80307; 86704; 86709; 86803; 87340; 87637; 87798; 93005; 96360; 96361; 99285; H0046; 71046; 80320; 80329; 81003; 83605; 84443; 85025; 85379; 86618; 93010; J3490